=== PATIENT | male | born 1935 | race Caucasian/White ===

== ENCOUNTER 2016-12-09 03:06 | Inpatient (IN) ==
[2016-12-09] MEDS ORDERED: SODIUM CHLORIDE 0.9% 1,000 ML IV STA (03:42)
[2016-12-09] MEDS ORDERED: ENOXAPARIN 100 MG/ML SYRINGE SUBCUT STA (03:42)
[2016-12-09] MEDS ORDERED: ONDANSETRON 4 MG/2 ML VIAL IV STA (03:42)
[2016-12-09] MEDS ORDERED: CLOPIDOGREL 300 MG TABLET PO STA (03:42)
[2016-12-09] MEDS ORDERED: ASPIRIN CHEW 81 MG TABLET PO STA (03:42)
[2016-12-09] MEDS ORDERED: MORPHINE 2 MG/1 ML SYRINGE IV ONE (03:46)
--- NOTE | 2016-12-09 03:49 | EKG Report ---
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
[2016-12-09 03:54] LABS: Basophils % 0.3 % (0.0-0.8); Eosinophils # 0.1 10*3/uL (0.0-0.87); Eosinophils % 0.9 % (0.00-10.9); Hematocrit 45.9 VOL% (42.0-52.0); Hemoglobin 15.3 GM/DL (14.0-18.0); Immature Granulocytes % 0.8 %; Lymphocytes # 2.5 10*3/uL (1.4-4.0); Lymphocytes % 19.5 % (21.2-54.2); Mean Corpuscular HGB Conc 33.3 GM/DL (32-36); Mean Corpuscular Hemoglobin 32 PG (27-34); Mean Corpuscular Volume 94.6 FL (87-102); Mean Platelet Volume 11.8 FL (9.6-12.0); Monocytes # 1.5 10*3/uL (0.11-0.8); Monocytes % 11.5 % (1.7-12.7); Neutrophils # 8.5 10*3/uL (1.4-7.4); Platelet Count 209 T/CUMM (130-400); Red Blood Count 4.85 MC/CUMM (3.8-5.5); Red Cell Distribution Width 14.1 % (9.3-17.3); White Blood Count 12.7 T/CUMM (4-12)
[2016-12-09] MEDS ORDERED: ONDANSETRON 4 MG/2 ML VIAL ONE (03:56)
[2016-12-09] MEDS ORDERED: ASPIRIN 325 MG TABLET ONE (03:56)
[2016-12-09] MEDS ORDERED: MORPHINE 2 MG/1 ML SYRINGE ONE ×2 (03:56→04:13)
[2016-12-09] MEDS ORDERED: CLOPIDOGREL 300 MG TABLET ONE ×2 (03:56→05:08)
[2016-12-09] MEDS ORDERED: ENOXAPARIN 80 MG/0.8 ML SYRINGE SUBCUT ONE (03:56)
--- NOTE | 2016-12-09 03:56 | Emergency Department Note ---
I, Tamia Snider, am scribing for, and in the presence of, Samuel Rodríguez MD 03:48. IMarcos Robert M, MD, personally performed the services described in this documentation, ascribed by Tamia Snider in my presence, and it is both accurate and complete 354 . Arrival - Arrival Chief Complaint: Back Stated Complaint: nerve in back and side ,ask pt ED Nursing Triage Note: PATIENT STATES THAT HE RECIEVED AN INJECTION FOR MUSCLE PAIN LAST WEEK AND HAS BEEN HAVING BACK PAIN EVER SINCE. PATIENT HAS A HX OF BACK SURGERY AND CHRONIC BACK PAIN. STATE THAT PAIN WAS SO INTENSE THAT IT CAUSED HIM TO BREAK OUT IN A SWEAT. Mode of Arrival: Ambulatory Limitations: No Limitations Source: Patient Time Seen by Provider: 12/09/16 03:35 - History of Present Illness HPI Narrative: Pt is a 81 y/o male that came to the ED with c/o nerve/back pain that began about a week ago and worsened tonight. Pt reports he had back surgery and his sciatic nerve is causing his pain. He states he had an injection done 6 days ago with no relief. Pt reports he has not slept since the injection. After he was brought to the emergency department treatment room, he states he began having chest pain about 2 hours ago with diaphoresis, nausea, and faint feeling. He did not mention the symptoms at time of triage. He states he was going to wait and go to the pain clinic tomorrow but the pain got too much and when the chest pain came on he did not want to risk it. Dr. Dillard is the pt 's counseling specialist. He has had 5 stents placed in the past. No other complaints/ pain in ED at this time. Onset (ago): hour(s) Consistency: constant Severity: moderate, severe Severity scale (1-10): 8 Quality: sharp Allergies/Adverse Reactions: Allergies Allergy/AdvReac Type Severity Reaction Status Date / Time No Known Allergies Allergy Unverified 08/04/15 10:46 Home Medications: Home Medications Medication Instructions Recorded Confirmed Type Aspirin [Ecotrin] 81 mg PO BEDTIME 08/04/15 12/09/16 History Atorvastatin [Lipitor] 20 mg PO BEDTIME 08/04/15 12/09/16 History Insulin Aspart Prot/Asp 70/30 36 unit SUBCUT BEDTIME 08/04/15 12/09/16 History [NovoLOG Mix 70/30] Insulin Aspart Prot/Asp 70/30 50 unit SUBCUT DAILY W/BREAKFAST 08/04/15 History [NovoLOG Mix 70/30] Losartan [Cozaar] 50 mg PO BEDTIME 08/04/15 12/09/16 History Nitroglycerin [Nitroglycerin SL 0.4 mg SL Q5M PRN #100 tablet 08/04/15 12/09/16 Rx Tab] Pantoprazole Tab [Protonix Tab] 40 mg PO BEDTIME 10/24/16 12/09/16 History Atenolol [Tenormin] 25 mg PO BID #60 tablet 10/26/16 12/09/16 Rx Atorvastatin [Lipitor] 20 mg PO BEDTIME tablet 10/26/16 12/09/16 Rx Isosorbide Mononitrate [Imdur] 30 mg PO DAILY #30 tablet 10/26/16 12/09/16 Rx Review of System - Review of System 12 point system: reviewed and no additional remarkable complaints except as stated - Review of System Constitutional: Present: diaphoresis. Absent: fever Respiratory: Absent: cough Cardiovascular: Present: chest pain Gastrointestinal: Present: nausea. Absent: abdominal pain Musculoskeletal: Present: back pain (nerve pain in his back). Absent: arm pain Skin: Absent: rash Neurological: Absent: headache Psychiatric: Absent: anxiety Medical,Surgical,& Family Hx - Medical History Cardio: History of: Hypertension, [place] (x3) HEENT: History of: Eye Problem (cataract both eyes) Endocrine: History of: Diabetes Mellitus (IDDM) Rheumatology: History of;: Fibromyalgia Genitourinary: History of: Kidney Stones Gastrointestinal: History of: GERD Musculoskeletal: History of: Back/Neck Problems, Musculoskeletal Problems ( arthritis) Hematology: History of: Bleeding Problems (Elevated platlets R/T spleenectomy) - Surgical History Cardiac Surgeries: Sugical HX of: Cardiac Catheterization (stents x5) Abdominal Surgeries: Surgical HX of: Abdominal Surgery, Appendectomy, Cholecystectomy, Colonoscopy, EGD Orthopedic Surgeries: Surgical HX of;: Orthopedic Surgery (bl knee scope and repair) Comment Only: Spinal Surgery (spinal spurs removed) - Family History Family History: Reports;: Family Diabetes (mother), Family Heart Disease (mother ), Family Hypertension (mother), Family Stroke (mother) - Social History Smoking Status: Never smoker Frequency of Alcohol Use: None Type of Drug Use: None Exam Vital Signs: Vital Signs Temperature 97.4 F L 12/09/16 03:14 Pulse Rate 53 L 12/09/16 03:14 Respiratory Rate 20 12/09/16 03:14 Blood Pressure 180/80 12/09/16 03:14 O2 Sat by Pulse Oximetry 96 12/09/16 03:14 - General General appearance: alert, in no apparent distress - Head Head exam: Present: atraumatic, normocephalic - Eye Eye exam: Present: PERRL, EOMI - ENT ENT exam: Present: mucous membranes moist. Absent: mucous membranes dry - Neck Neck exam: Present: full ROM. Absent: tenderness - Chest Chest inspection: Present: symmetric chest wall rise. Absent: tenderness - Respiratory Respiratory exam: Present: normal lung sounds bilaterally. Absent: respiratory distress - Cardiovascular Cardiovascular exam: Present: regular rate, normal rhythm, normal heart sounds - Abdominal Exam Abdominal exam: Present: soft. Absent: tenderness - Extremities Exam Extremities exam: Present: full ROM. Absent: tenderness - Back Exam Back exam: Present: full ROM. Absent: tenderness - Neurological Exam Neurological exam: Present: alert, oriented X3, CN II-XII intact. Absent: motor sensory deficit - Psychiatric Psychiatric exam: Present: normal affect, normal mood - Skin Skin exam: Present: warm, dry Course - Consultations Consultation #1: Dr. Linwood Starkey was notified of STEMI and asked that we activate the Mud Grinder. Time: 03:45 Results - EKG EKG results: interpreted by ERMD (inferior STEMI. This is new from prior EKGs.) , sinus rhythm Disposition Clinical Impression: Acute ST elevation myocardial infarction (STEMI), Lumbar radiculopathy, History of coronary artery stent placement, Chest pain Case discussed with: patient, patient's family Disposition: Still a Patient Condition: Stable Time of Disposition: 03:56
[2016-12-09] MEDS ORDERED: NITROGLYCERIN DRIP 50 MG/250 ML BOTTLE IV ONE (03:57)
[2016-12-09] MEDS ORDERED: MORPHINE 2 MG/1 ML SYRINGE IV STA (03:59)
[2016-12-09 04:03] LABS: PT Patient Result 10.4 SECS
[2016-12-09] MEDS: NITROGLYCERIN DRIP 50 MG/250 ML BOTTLE IV SCH (04:08)
[2016-12-09] MEDS ORDERED: LIDOCAINE 1% 20 ML VIAL ONE (04:16)
[2016-12-09] MEDS ORDERED: HEPARIN/NACL 0.9% 2 UNITS/ML 1,000 ML IV ONE (04:16)
[2016-12-09] MEDS ORDERED: LIDOCAINE 1%/EPI INJ 20 ML VIAL ONE (04:16)
[2016-12-09] MEDS ORDERED: MIDAZOLAM 2 MG/2 ML VIAL ONE (04:17)
[2016-12-09] MEDS ORDERED: fentaNYL 100 MCG/2 ML VIAL ONE (04:17)
[2016-12-09 04:18] LABS: Albumin 3.5 G/DL (3.4-5.0); Bilirubin,Total 0.5 MG/DL (0.2-1.0); Calcium 8.9 MG/DL (8.5-10.1); Magnesium 2.1 MG/DL (1.8-2.4); Osmolality,Calculated 283.5 MOS/KG (273-304); Potassium 4.2 MMOL/L (3.5-5.1); Total Protein 6.9 G/DL (6.4-8.3)
[2016-12-09] MEDS ORDERED: HEPARIN/NACL 0.9% 2 UNITS/ML 500 ML IV ONE (04:21)
[2016-12-09] MEDS ORDERED: methylPREDNISolone SOD SUC 125 MG/2 ML VIAL ONE (04:24)
[2016-12-09 04:26] LABS: Troponin I Only 0.087 NG/ML (0.00-0.045)
[2016-12-09] MEDS ORDERED: EPTIFIBATIDE 20,000 MCG/10 ML VIAL ONE (04:44)
[2016-12-09] MEDS ORDERED: EPTIFIBATIDE 75 MG/100 ML BOTTLE IV ONE (04:44)
[2016-12-09] MEDS ORDERED: EPTIFIBATIDE 75 MG/100 ML BOTTLE IV SCH (04:49)
--- NOTE | 2016-12-09 05:30 | Cardiac Catheterization ---
Date of Procedure:: 12/09/16 Pre-op Diagnosis: Acute inferolateral myocardial infarction with ST elevation Post-op diagnosis: same Procedure: Clinical summary: 81-year-old man with history of prior stents placed to the LAD and diagonal as well as to the distal right at the origin of the posterolateral branch now with ST elevation inferiorly for emergent evaluation. Description of procedure: Procedure performed: Left heart catheterization Coronary angiography Emergent percutaneous intervention of the midportion of the posterolateral branch with a 2.5 x 15 mm science drug-eluting stent Percutaneous intervention of the proximal posterolateral margin with a 3.0 x 15 mm science Alpine drug-eluting stent Left ventriculography Angio-Seal closure right from arteriotomy site Patient was brought to the [facility] emergently where the right groin was prepped and draped in the usual sterile manner. Using intravenous sedation and local anesthesia a needle was inserted right femoral artery without difficulty and a 6 Yi sheath was positioned without difficulty. A [place] left diagnostic catheter was advanced over guidewire to fluoroscopic control the ascending aorta where angiography left coronary artery was undertaken in multiple views. After adequate angiograms of the left coronary were obtained this catheter was withdrawn and a [place] right guide was advanced over a guidewire under fluoroscopic control to the ascending aorta where it was positioned at the ostium of the right coronary artery. A BMW 014 wire was advanced to the distal posterolateral branch and some baptism of flow was noted at that point. Next a 2.5 x 15 mm apex balloon was advanced to the proximal posterolateral inflated one-time to 8 atmospheres. It was then advanced to the midportion of the posterolateral and inflated at a mid posterolateral stenosis to 10 toshia for 26 seconds. At this point this balloon was removed from the guidewire and a 2.5 x 15 mm science Alpine balloon was advanced to the area in the mid posterolateral and deployed to a maximum 6 toshia for 6 seconds. There was good apposition of the stent to the vessel wall. At this point the delivery balloon was pulled back into the guide and removed. Next a 3.0 x 15 mm science Alpine stent was advanced to the ostium of the posterolateral and deployed to a maximum of 14 toshia for 20 seconds. There appeared to be JENIFER grade 3 flow down the vessel. No good evidence of significant dissection or compromise flow can be identified. At this point the delivery balloon was pulled back into the guide. The guidewire was then pulled back into the guide. Repeat angiogram confirmed a good result. At this point the balloon and wire were removed from the guide. The guide was then removed from the sheath and a pigtail ventriculographic catheter was advanced over a guidewire under fluoroscopic control to the ascending aorta and across the aortic valve where ventriculograms obtained in the PARKINSON projection. After completion of ventriculography the pigtail catheter was removed moved and pullback from the ventricle to the aorta under hemodynamic monitoring. It was removed from the sheath. The patient then underwent right femoral sheath angiography which demonstrated anatomy appropriate for Angio-Seal closure. This was accomplished without difficulty. Good hemostasis was obtained. The patient then was transferred to the CCU having suffered no significant immediate complications. Stable vital signs are noted end procedure. Hemodynamics: Please see coming data sheet Coronary arteriography: Left coronary artery: The left main coronary artery is well-developed and free of significant obstructing lesions. The left anterior descending coronary artery is large vessel extends around the apex of the ventricle possesses no significant lesions throughout its course. The branches of the LAD are likewise free of significant obstructing lesions. There is noted to be a smooth 70% stenosis noted in the midportion of the LAD near the apex. The remainder of the LAD and its branches appeared to be free of significant obstructing lesions. Circumflex coronary is a small nondominant vessel with possesses no significant lesions to its course. Right coronary artery: The right coronary artery is a large dominant vessel that possesses no significant lesions throughout its course. At the bifurcation of the posterior descending coronary artery there is a occlusion noted of the posterolateral branch of the right coronary. The remainder the right coronary appears to be free of significant obstructing lesions. Percutaneous intervention: After the above described procedure the posterolateral branch was opened using a guidewire and after ballooning the proximal occluded segment a tight mid posterolateral branch occlusion was noted. This was treated as outlined above with a 2.5 x 15 mm Paracosm balloon. After the above described procedures involving the mid posterolateral and the ostium of the posterolateral there was JENIFER grade 3 flow without significant compromised perfusion noted. Left ventriculography: After injection of contrast left ventricle from the PARKINSON projection there appears to be basal hypokinesis with overall ejection fraction estimated to be in the 55-60% range. Mitral and aortic structures appear normal by ventriculography. Right femoral sheath angiography: After injection of contrast right femoral arterial sheath it appears to enter the common femoral above the bifurcation. No significant disease of the distal iliac, common femoral or bifurcation be noted based on this limited angiographic study. Conclusions: Successful percutaneous intervention of a total occlusion of the posterolateral branch with stenting of the mid vessel as well as ostium with a good angiographic result Normal left ventricular size and function Angio-Seal closure right from arteriotomy site Discussion and recommendations: Patient presents with acute inferolateral myocardial infarction. He is been treated successfully percutaneous intervention as outlined above. It watched closely for evidence of bleeding recurring ischemia. Our findings of been reviewed with the patient and with his family. Anesthesia: moderate conscious sedation Surgeon / Physician: Seth Starkey Corporate Services Manager: none Estimated blood loss: minimal Specimens: none sent Condition: stable - Discharge Disposition: Still a Patient - Medications / Follow-up
[2016-12-09] MEDS ORDERED: NITROGLYCERIN SL 0.4 MG TABLET SL PRN (05:31)
[2016-12-09] MEDS ORDERED: ACETAMINOPHEN 325 MG TABLET PO PRN (05:33)
[2016-12-09] MEDS ORDERED: SODIUM CHLORIDE 0.9% 1,000 ML IV SCH (06:00)
--- NOTE | 2016-12-09 06:04 | XRay Report ---
Exam: XR chest 1V portable Date: 12/09/2016 3:43 AM Indication: Shortness of breath Comparison: 10/24/2016 Technical: AP portable Findings: Mild borderline cardiac enlargement is present. Scarring is present adjacent to the first rib on the left. Lateral marginal osteophytes are present. ASVD is noted. External cardiac leads are present. No obvious infiltrate or effusion otherwise noted Impression: 1. Borderline cardiac enlargement with ASVD without decompensation 2. Degenerative spondylosis 3. Scarring adjacent to the left first rib 4. No acute cardiopulmonary pathology PROCEDURE INTERPRETED AT [facility] DEPARTMENT OF RADIOLOGY Final Report Signed by: Dr. Will Conroy
--- NOTE | 2016-12-09 07:39 | EKG Report ---
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
[2016-12-09] MEDS ORDERED: HYDROmorphone 2 MG/1 ML VIAL IM PRN (08:28)
[2016-12-09 08:37] LABS: CKMB % 11.7 %
[2016-12-09 08:41] LABS: Troponin I Only 33.9 NG/ML (0.00-0.045)
[2016-12-09] MEDS: INSULIN ASPART PROTAMINE/ASPART 70/30 100 UNIT/ML SUBCUT SCH ×2 (08:43→20:25)
[2016-12-09] MEDS: ATENOLOL 25 MG TABLET PO SCH ×2 (08:45→20:25)
[2016-12-09] MEDS: ISOSORBIDE MONONITRATE 30 MG TABLET PO SCH (08:45)
[2016-12-09] MEDS: INSULIN REGULAR 100 UNIT/ML SUBCUT SCH ×4 (08:50→20:29)
--- NOTE | 2016-12-09 09:02 | Cardiology History & Physical ---
Assessment and Plan (1) Acute ST elevation myocardial infarction (STEMI) Status: Acute Assessment and plan: Patient is now post PCI with a angiographically (vessel and good JENIFER grade 3 flow down the vessel. He is comfortable without evidence of heart failure. His rhythm has been stable and his EKG is much improved. His second troponin was 33 and we are continuing to monitor him closely. Our findings have been reviewed with the patient and with his family. Current Visit: Yes (2) History of coronary artery stent placement Problem details: Stents to: first diagonal branch, distal RCA 2, second diagonal branch, proximal LAD. Status: Chronic Current Visit: Yes (3) Coronary artery disease Status: Chronic Current Visit: No (4) Diabetes mellitus Status: Chronic Current Visit: No History of Present Illness Chief complaint: ST elevation myocardial infarction History of present illness: Mr. Silva is a 81 year old male who sees Dr. Dillard is his primary angio technologist. He has a history of an anterior myocardial infarction in 2003. He was treated with intracoronary stent placement. He had reevaluation in 2007 and his stents were open without evidence of significant disease. In 2011 he had stenting of a diagonal branch as well as of the posterolateral branch of the right coronary artery. He has done well since that time and now presents with an acute inferior myocardial infarction with ST elevation in the inferolateral leads. He was taken emergently to the [facility] and had PCI of an occluded stented segment of the posterolateral branch as well as stenting of a more distal lesion of the same vessel. He is stable post PCI. He has a history of fibromyalgia. He has a history of diabetes and hyperlipidemia. He has remote history of tobacco use and a history of asthma. He has severe right hip pain which I think is related to some issues with his hip joint. He takes chronic pain medications for fibromyalgia. He is admitted now post PCI for a ST elevation inferior myocardial infarction Home Medications Medication Instructions Recorded Confirmed Type Aspirin [Ecotrin] 81 mg PO BEDTIME 08/04/15 12/09/16 History Atorvastatin [Lipitor] 20 mg PO BEDTIME 08/04/15 12/09/16 History Insulin Aspart Prot/Asp 70/30 36 unit SUBCUT BEDTIME 08/04/15 12/09/16 History [NovoLOG Mix 70/30] Insulin Aspart Prot/Asp 70/30 50 unit SUBCUT DAILY W/BREAKFAST 08/04/15 History [NovoLOG Mix 70/30] Losartan [Cozaar] 50 mg PO BEDTIME 08/04/15 12/09/16 History Nitroglycerin [Nitroglycerin SL 0.4 mg SL Q5M PRN #100 tablet 08/04/15 12/09/16 Rx Tab] Pantoprazole Tab [Protonix Tab] 40 mg PO BEDTIME 10/24/16 12/09/16 History Atenolol [Tenormin] 25 mg PO BID #60 tablet 10/26/16 12/09/16 Rx Atorvastatin [Lipitor] 20 mg PO BEDTIME tablet 10/26/16 12/09/16 Rx Isosorbide Mononitrate [Imdur] 30 mg PO DAILY #30 tablet 10/26/16 12/09/16 Rx HYDROcodone/ACETAMIN 7.5-325 1 tablet PO Q6H PRN 12/09/16 12/09/16 History [[place] 7.5-325] Allergies Allergy/AdvReac Type Severity Reaction Status Date / Time No Known Allergies Allergy Unverified 08/04/15 10:46 Medical,Surgical,& Family Hx - Medical History Cardio: History of: Hypertension, [place] (x3) HEENT: History of: Eye Problem (cataract both eyes) Endocrine: History of: Diabetes Mellitus (IDDM) Rheumatology: History of;: Fibromyalgia, Rheumatoid Arthritis Genitourinary: History of: Kidney Stones Gastrointestinal: No history of: GERD Musculoskeletal: History of: Back/Neck Problems, Musculoskeletal Problems ( arthritis) Hematology: History of: Bleeding Problems (Elevated platlets R/T spleenectomy) - Surgical History Cardiac Surgeries: Sugical HX of: Cardiac Catheterization (stents x5) Abdominal Surgeries: Surgical HX of: Abdominal Surgery, Appendectomy, Cholecystectomy, Colonoscopy, EGD Orthopedic Surgeries: Surgical HX of;: Orthopedic Surgery (bl knee scope and repair), Spinal Surgery (spinal spurs removed) - Family History Family History: Reports;: Family Diabetes (mother), Family Heart Disease (mother ), Family Hypertension (mother), Family Stroke (mother) Denies;: Family Anesthesia Reaction, Family Cancer, Family Hematology, Family Psychiatric Problems - Social History Smoking Status: Never smoker Frequency of Alcohol Use: None Type of Drug Use: None Cardiology Physical Exam - Constitutional Vitals: Vital Signs Temp Pulse Resp BP Pulse Ox 97.8 F 82 15 161/77 94 L 12/09/16 05:33 12/09/16 06:55 12/09/16 06:55 12/09/16 06:55 12/09/16 06:55 Intake and Output 12/08/16 12/09/16 12/09/16 23:59 07:59 15:59 Other: # Voids 0 # Bowel Movements 0 Weight 97.069 kg Patient Weight 12/09/16 23:59 Weight 97.069 kg Exam: Physical examination: General: The patient is awake and alert and oriented 3. Mood and affect are normal. HEENT: Normocephalic, sclera are clear there are no lid xanthelasmas noted. Oral mucosa is free of cyanosis or pallor. Neck: The neck is supple without JVD. Carotid upstrokes are normal volume and amplitude. There is no audible bruit. There is no palpable thyroid. Trachea is midline. Chest: Lungs: The patient is comfortable at rest without intercostal retractions or abdominal breathing. There are no adventitial sounds rales rubs rhonchi or wheezes noted. Cardiovascular: The PMI is nondisplaced. No palpable thrill S3 or S4. There is a regular rate and rhythm with no murmur rub or gallop noted. Dorsalis pedis posterior tibial and femoral pulses are 2+ and equal bilaterally. Abdomen: Abdomen is soft and nontender with normal active bowel sounds. There is no palpable mass or organomegaly noted. There is no midline bruit. Extremities exam: There is no cyanosis clubbing or edema. Skin: Skin is warm and dry without ecchymosis or urticaria or skin rash. There are no palpable nodules. Musculoskeletal: There is no kyphosis or scoliosis noted. Result/EKG - Labs CBC & BMP: 12/09/16 03:46 12/09/16 03:46 Labs: Laboratory Results - last 24 hr 12/09/16 12/09/16 07:11 07:54 POC Glucose 211 H Total Creatine Kinase 912 H CK-MB (CK-2) 106.4 H CK and CKMB Interp 11.7 Troponin I 33.900 H D - EKG EKG results: interpreted by me (EKG shows an old anterior myocardial infarction with nonspecific ST-T change currently. EKG series shows inferolateral myocardial infarction with ST elevations to baseline currently.) Quality Measures - VTE Contraindication to Pharmacological VTE Prophylaxis: High Risk of Bleeding
[2016-12-09] MEDS: LOSARTAN 50 MG TABLET PO SCH (09:18)
[2016-12-09] MEDS: HYDROmorphone 2 MG/1 ML VIAL IV PRN ×2 (11:51→22:16)
[2016-12-09] MEDS: PANTOPRAZOLE 40 MG TABLET PO SCH (20:25)
[2016-12-09] MEDS: ASPIRIN EC 81 MG TABLET PO SCH (20:25)
[2016-12-09] MEDS: ATORVASTATIN 20 MG TABLET PO SCH (20:25)
[2016-12-09] MEDS ORDERED: LOSARTAN 50 MG TABLET PO SCH (21:00)
[2016-12-09] MEDS ORDERED: ATORVASTATIN 20 MG TABLET PO SCH (21:00)
[2016-12-10] MEDS: HYDROmorphone 2 MG/1 ML VIAL IV PRN (03:11)
[2016-12-10] MEDS: NITROGLYCERIN DRIP 50 MG/250 ML BOTTLE IV SCH (04:11)
[2016-12-10 04:59] LABS: Basophils # 0.1 10*3/uL (0.0-0.2); Basophils % 0.4 % (0.0-0.8); Eosinophils % 0.3 % (0.00-10.9); Hematocrit 42.5 VOL% (42.0-52.0); Hemoglobin 14.2 GM/DL (14.0-18.0); Immature Granulocytes % 0.8 %; Lymphocytes # 2.5 10*3/uL (1.4-4.0); Lymphocytes % 20.9 % (21.2-54.2); Mean Corpuscular HGB Conc 33.4 GM/DL (32-36); Mean Corpuscular Hemoglobin 32 PG (27-34); Mean Corpuscular Volume 94.9 FL (87-102); Mean Platelet Volume 12.1 FL (9.6-12.0); Monocytes # 2.1 10*3/uL (0.11-0.8); Monocytes % 17.1 % (1.7-12.7); Neutrophils # 7.3 10*3/uL (1.4-7.4); Neutrophils % 60.5 % (38.7-73.9); Platelet Count 184 T/CUMM (130-400); Red Blood Count 4.48 MC/CUMM (3.8-5.5); Red Cell Distribution Width 14.3 % (9.3-17.3); White Blood Count 12.1 T/CUMM (4-12)
[2016-12-10 05:34] LABS: Lymphocytes 30 % (20-55); Segmented Neutrophils 61 % (50-85)
[2016-12-10 05:35] LABS: Elliptocytes Few; Platelet Estimate Normal; Total Cells Counted 100
[2016-12-10 06:19] LABS: Calcium 8.3 MG/DL (8.5-10.1); Osmolality,Calculated 289.7 MOS/KG (273-304); Potassium 4.4 MMOL/L (3.5-5.1); Risk Ratio 2.08; VLDL CHOLESTEROL 12.2 MG/DL
[2016-12-10] MEDS: INSULIN REGULAR 100 UNIT/ML SUBCUT SCH ×4 (08:31→21:37)
--- NOTE | 2016-12-10 08:31 | Cardiology Progress Note ---
Isidoro Cobb Vanessa, RN, am scribing for, and in the presence of, Seth Starkey MD 08:31. Assessment and Plan - Time spent with patient Time spent with patient: Less than 30 minutes (1) Acute ST elevation myocardial infarction (STEMI) Status: Acute Assessment and plan: Continues to do well post PCI of PLV with drug eluting stent x 2. No clinical findings for heart failure. Last troponin check yesterday afternoon and was 48.2. 12/10/16: Clinically stable post PCI. He is doing well and we will transfer him to the floor and likely discharge in the morning. I have discussed in detail the particulars of this case and I have examined the patient and reviewed the patient's chart both current and old. I was directly involved in this patient's evaluation and management I completely agree with Kandy Chaudhry regarding this patient's evaluation and treatment plan Current Visit: Yes (2) History of coronary artery stent placement Problem details: Stents to: first diagonal branch, distal RCA 2, second diagonal branch, proximal LAD. Status: Chronic Assessment and plan: Previously placed stents patent. Current Visit: Yes (3) Coronary artery disease Status: Chronic Current Visit: No (4) Diabetes mellitus Status: Chronic Current Visit: No (5) Hypertension Status: Chronic Current Visit: No Cardiology - PN: Subj Interval history: Under close observation in ICU this morning. Awake and alert with no acute distress noted. Denies CP, SOB, palpitation, presyncope. Only complaint this morning is of right hip discomfort and he contributes this to chronic pain for which he is followed by pain management. RFA cath site without bruise or hematoma. Dorsalis pedis and posterior tibial pulses 2+ and palpable bilaterally. Slightly bradycardic overnight with HR in 50's, regular. No overt ectopy or dysrhythmia per tele monitoring. Labs reviewed. H/H stable 14.2 & 42.5 , platelets slightly decreased but within normal range at 184,000 (209,000 yesterday), electrolytes within normal limits and creatinine is 0.9. Exam (Progress Note) - Constitutional Vitals: Period Temp Pulse Resp BP Sys/Ferreira Pulse Ox Last 24 Hr 97.8 F-99.6 F 49-82 11-21 104-163/51-90 92-97 Exam: General: The patient is awake and alert and oriented 3. Mood and affect are normal. HEENT: Normocephalic, sclera are clear there are no lid xanthelasmas noted. Oral mucosa is free of cyanosis or pallor. Neck: The neck is supple without JVD. Carotid upstrokes are normal volume and amplitude. There is no audible bruit. There is no palpable thyroid. Trachea is midline. Chest: Lungs: The patient is comfortable at rest without intercostal retractions or abdominal breathing. There are no adventitial sounds rales rubs rhonchi or wheezes noted. Cardiovascular: The PMI is nondisplaced. No palpable thrill S3 or S4. There is a regular rate and rhythm with no murmur rub or gallop noted. Dorsalis pedis posterior tibial and femoral pulses are 2+ and equal bilaterally. Abdomen: Abdomen is soft and nontender with normal active bowel sounds. There is no palpable mass or organomegaly noted. There is no midline bruit. Extremities exam: There is no cyanosis clubbing or edema. Skin: Skin is warm and dry without ecchymosis or urticaria or skin rash. There are no palpable nodules. Musculoskeletal: There is no kyphosis or scoliosis noted. Result/EKG - Labs CBC & BMP: 12/10/16 04:08 12/10/16 04:08 Lab Results: I have reviewed the past 24 hour labs Labs: Laboratory Results - last 24 hr 12/09/16 12/09/16 12/09/16 07:11 12:06 14:01 WBC RBC Hgb Hct MCV MCH MCHC RDW Plt Count MPV Neut % (Auto) Lymph % (Auto) Jack % (Auto) Eos % (Auto) Baso % (Auto) Neut # (Auto) Lymph # (Auto) Jack # (Auto) Eos # (Auto) Baso # (Auto) Total Counted Immature Gran % Nucleated RBC % Immature Gran # Segmented Neutrophils Lymphocytes Monocytes Nucleated RBCs # Platelet Estimate Elliptocytes Sodium Potassium Chloride Carbon Dioxide Anion Gap BUN Creatinine GFR Calculation BUN/Creatinine Ratio Glucose POC Glucose 198 H Calculated Osmolality Calcium Total Creatine Kinase 912 H CK-MB (CK-2) 106.4 H CK and CKMB Interp 11.7 Troponin I 33.900 H D 48.200 H D Triglycerides Cholesterol LDL Cholesterol VLDL Cholesterol HDL Cholesterol Heart Disease Risk Ratio 12/09/16 12/09/16 12/10/16 16:17 19:51 04:08 WBC 12.1 H RBC 4.48 Hgb 14.2 Hct 42.5 MCV 94.9 MCH 32 MCHC 33.4 RDW 14.3 Plt Count 184 MPV 12.1 H Neut % (Auto) 60.5 Lymph % (Auto) 20.9 L Jack % (Auto) 17.1 H Eos % (Auto) 0.3 Baso % (Auto) 0.4 Neut # (Auto) 7.3 Lymph # (Auto) 2.5 Jack # (Auto) 2.1 H Eos # (Auto) 0.0 Baso # (Auto) 0.1 Total Counted 100 Immature Gran % 0.8 Nucleated RBC % 0.0 Immature Gran # 0.10 Segmented Neutrophils 61 Lymphocytes 30 Monocytes 9 Nucleated RBCs # 0.00 Platelet Estimate Normal Elliptocytes Few Sodium Potassium Chloride Carbon Dioxide Anion Gap BUN Creatinine GFR Calculation BUN/Creatinine Ratio Glucose POC Glucose 143 H 227 H Calculated Osmolality Calcium Total Creatine Kinase CK-MB (CK-2) CK and CKMB Interp Troponin I Triglycerides Cholesterol LDL Cholesterol VLDL Cholesterol HDL Cholesterol Heart Disease Risk Ratio 12/10/16 04:08 WBC RBC Hgb Hct MCV MCH MCHC RDW Plt Count MPV Neut % (Auto) Lymph % (Auto) Jack % (Auto) Eos % (Auto) Baso % (Auto) Neut # (Auto) Lymph # (Auto) Jack # (Auto) Eos # (Auto) Baso # (Auto) Total Counted Immature Gran % Nucleated RBC % Immature Gran # Segmented Neutrophils Lymphocytes Monocytes Nucleated RBCs # Platelet Estimate Elliptocytes Sodium 145 Potassium 4.4 Chloride 107 Carbon Dioxide 26 Anion Gap 16.4 H BUN 21 H Creatinine 0.90 GFR Calculation 97 BUN/Creatinine Ratio 23.00 H Glucose 76 POC Glucose Calculated Osmolality 289.7 Calcium 8.3 L Total Creatine Kinase CK-MB (CK-2) CK and CKMB Interp Troponin I Triglycerides 61 Cholesterol 104 LDL Cholesterol 55.0 VLDL Cholesterol 12.2 HDL Cholesterol 50 Heart Disease Risk Ratio 2.08 - EKG EKG results: interpreted by me EKG shows: bradycardia (sinus bradycardia) Quality Measures - VTE Contraindication to Pharmacological VTE Prophylaxis: High Risk of Bleeding Specialty Discharge - Follow Up or Referrals Lalito Cobb Wesley, MD, personally performed the services described in this documentation, ascribed by Kandy Chaudhry RN in my presence, and it is both accurate and complete 831 .
[2016-12-10] MEDS: CLOPIDOGREL 75 MG TABLET PO SCH (08:34)
[2016-12-10] MEDS: ATENOLOL 25 MG TABLET PO SCH ×2 (08:34→21:37)
[2016-12-10] MEDS: ISOSORBIDE MONONITRATE 30 MG TABLET PO SCH (08:34)
[2016-12-10] MEDS: LOSARTAN 50 MG TABLET PO SCH (08:34)
[2016-12-10] MEDS: INSULIN ASPART PROTAMINE/ASPART 70/30 100 UNIT/ML SUBCUT SCH ×2 (08:35→21:37)
[2016-12-10] MEDS: oxyCODONE/ACETAMINOPHEN 5-325 MG TABLET PO PRN ×3 (09:05→21:43)
--- NOTE | 2016-12-10 09:07 | EKG Report ---
Stationary ECG Study [facility] Test Date: 12/10/2016 7:49:38 AM Pat Name: ALYSON TRIANA Department: Room: 112 Gender: M Lawyers: SHANELLE : 1935 Requested by: Seth Starkey Order Number: [id number] Reading MD: SETH STARKEY Intervals [place] Rate: 53 P: 60 NE: 157 QRS: -61 QRSD: 140 T: 29 QT: 447 QTc: 429 Interpretive Statements SINUS BRADYCARDIA MARKED LEFT AXIS DEVIATION RIGHT BUNDLE BRANCH BLOCK ANTEROLATERAL MYOCARDIAL INFARCTION, OF INDETERMINATE AGE Electronically Signed On 12-10-16 16:11:25 CHIEF BUSINESS OFFICER by SETH STARKEY [email or web address]
--- NOTE | 2016-12-10 16:11 | Discharge Summary ---
<Bri Blackwell E - Last Filed: 12/10/16 16:14> Hospital Course - Hospital Course Hospital Course: discharge medications need to be addressed prior to closing this discharge summary Mr. 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 He has a history of an anterior myocardial infarction in 2003. He was treated with intracoronary stent placement. He had reevaluation in 2007 and his stents were open without evidence of significant disease. In 2011 he had stenting of a diagonal branch as well as of the posterolateral branch of the right coronary artery. He had done well since that time until he presented to the ER of [facility] December 08, 2016 with an acute inferior myocardial infarction with ST elevation in the inferolateral leads. He was taken emergently to the [facility] by Dr. Starkey where he had PCI of an occluded stented segment of the posterolateral branch as well as stenting of a more distal lesion of the same vessel. He did well without complication and was returned to ICU in stable condition. He was then transition to our telemetry unit overnight he has done well. Overnight, his labs are stable and his right groin soft and free of hematoma or bruit. He is anxious for release home. Having felt he met maximal medical therapy, he is being discharged home in stable condition. He is being given a follow-up appointment with Dr. Georges in one to 2 weeks. At that visit she'll have the following labs: BMP, magnesium and CBC. EKG will also be obtained. Discharge medications include the following: Aspirin 81 mg orally daily Plavix 75 mg orally daily Atenolol 25 mg orally twice a day Cozaar 50 Milgram's orally daily Atorvastatin 20 mg orally each evening He will resume his home insulin routine - Time spent with patient Time with patient DS: Greater than 30 minutes Diagnosis - Discharge Diagnosis (1) Dyslipidemia Status: Chronic (2) Diabetes Status: Chronic (3) Acute ST elevation myocardial infarction (STEMI) Status: Resolved (4) Chest pain Status: Resolved (5) Coronary artery disease Status: Chronic (6) Diabetes mellitus Status: Chronic (7) Hypertension Status: Chronic Specialty Discharge - Follow Up or Referrals Follow up with: Rob Georges MD [Physician] - (1-2 weeks. Labs: BMp, Mg, CBC. EKG) Discharge Plan - Discharge Data Disposition: Disch To Home/Self Care Discharge Diet: heart healthy Activity: other (post-cath expectations) Hygiene: other (post-cath expectations) Weight Bearing at Discharge: other (post-cath expectations) Driving: other (post-cath expectations) Contact your physician if you experience:: fever over 101, Difficulty voiding, Redness or swelling, Nausea/Vomiting, Shortness of breath, Bleeding, pain uncontrolled by pain medications - Discharge Medications No Action Atorvastatin [Lipitor] 20 mg PO BEDTIME Aspirin [Ecotrin] 81 mg PO BEDTIME Insulin Aspart Prot/Asp 70/30 [NovoLOG Mix 70/30] 50 unit SUBCUT DAILY W/ BREAKFAST Insulin Aspart Prot/Asp 70/30 [NovoLOG Mix 70/30] 36 unit SUBCUT BEDTIME Losartan [Cozaar] 50 mg PO BEDTIME Nitroglycerin [Nitroglycerin SL Tab] 0.4 mg SL Q5M PRN #100 tablet PRN Reason: Chest Pain Pantoprazole Tab [Protonix Tab] 40 mg PO BEDTIME Atorvastatin [Lipitor] 20 mg PO BEDTIME tablet HYDROcodone/ACETAMIN 7.5-325 [[place] 7.5-325] 1 tablet PO Q6H PRN PRN Reason: Pain Moderate To Severe (4-10) Atenolol [Tenormin] 25 mg PO BID #60 tablet Isosorbide Mononitrate [Imdur] 30 mg PO DAILY #30 tablet - Follow Up or Referral Follow Up: Rob Georges MD [Physician] - (1-2 weeks. Labs: BMp, Mg, CBC. EKG) - Forms/Instructions Instructions: Myocardial Infarction (GEN), Coronary Artery Disease (GEN), Heart Healthy Diet (GEN), Coronary Intravascular Stent Placement (DC) Exam - Constitutional Vitals: Period Temp Pulse Resp BP Sys/Ferreira Pulse Ox Last 24 Hr 96.1 F-97.9 F 16-64 16-20 99-146/44-81 90-97 Exam: General: Appears well with no apparent distress. Pleasant and cooperative. Appears comfortable. HEENT: PERRL, normocephalic, atraumatic. Mucous membranes moist. No jaundice noted. Conjunctiva moist and clear, sclerae anicteric Neck: No JVD/HJR, no thyromegaly or lymphadenopathy noted. Cardiac: Regular rate and rhythm. No murmur rub or gallop. Lungs: Clear to auscultation without accessory muscle use to assist the respiratory pattern. Not requiring oxygen. Abdomen: Soft, bowel sounds normoactive. Nontender and nondistended. No abdominal bruit or thrill noted. No masses noted. Musculoskeletal: No fluid collection. Decreased range of motion is noted. Extremities: Right groin soft and free of hematoma or bruit No clubbing, cyanosis noted. No edema noted. Upper extremity pulses 2+. Lower extremity pulses 2+. Capillary refill less than 3 seconds. Skin: No unusual lesions or rashes. No skin breakdown appreciated. Neuro: Awake, alert and oriented 3. Moves all extremities well without hemiparesis or paralysis. No essential tremor is appreciated. Discharge Results Labs on day of discharge: Labs from last 24 hours 12/11/16 12/11/16 12/11/16 08:16 06:33 06:33 WBC 10.1 RBC 4.56 Hgb 14.3 Hct 43.9 MCV 96.3 MCH 31 MCHC 32.6 RDW 14.4 Plt Count 170 MPV 11.6 Neut % (Auto) 57.8 Lymph % (Auto) 27.0 [place] % (Auto) 11.9 Eos % (Auto) 1.9 Baso % (Auto) 0.6 Neut # (Auto) 5.9 Lymph # (Auto) 2.7 [place] # (Auto) 1.2 H Eos # (Auto) 0.2 Baso # (Auto) 0.1 Immature Gran % 0.8 Nucleated RBC % 0.0 Immature Gran # 0.08 Nucleated RBCs # 0.00 Sodium 143 Potassium 4.8 Chloride 105 Carbon Dioxide 28 Anion Gap 14.8 BUN 24 H Creatinine 1.00 GFR Calculation 85 BUN/Creatinine Ratio 24.00 H Glucose 153 H POC Glucose 170 H Calculated Osmolality 291.0 Calcium 8.5 Magnesium 2.0 12/10/16 12/10/16 12/10/16 19:41 15:17 11:30 WBC RBC Hgb Hct MCV MCH MCHC RDW Plt Count MPV Neut % (Auto) Lymph % (Auto) [place] % (Auto) Eos % (Auto) Baso % (Auto) Neut # (Auto) Lymph # (Auto) [place] # (Auto) Eos # (Auto) Baso # (Auto) Immature Gran % Nucleated RBC % Immature Gran # Nucleated RBCs # Sodium Potassium Chloride Carbon Dioxide Anion Gap BUN Creatinine GFR Calculation BUN/Creatinine Ratio Glucose POC Glucose 170 H 92 95 Calculated Osmolality Calcium Magnesium 12/10/16 07:54 WBC RBC Hgb Hct MCV MCH MCHC RDW Plt Count MPV Neut % (Auto) Lymph % (Auto) [place] % (Auto) Eos % (Auto) Baso % (Auto) Neut # (Auto) Lymph # (Auto) [place] # (Auto) Eos # (Auto) Baso # (Auto) Immature Gran % Nucleated RBC % Immature Gran # Nucleated RBCs # Sodium Potassium Chloride Carbon Dioxide Anion Gap BUN Creatinine GFR Calculation BUN/Creatinine Ratio Glucose POC Glucose 81 Calculated Osmolality Calcium Magnesium - Imaging and Cardiology Cardiology Procedure: report reviewed by me Procedure: Chest x-ray: report reviewed by me DS: Provider Date of admission: 12/09/16 05:33 Primary care physician: Will Rich, Attending physician on admission: Seth Starkey MD Consults: 12/09/16 06:14 Consult to Pastoral Services [CONS] Routine Comment: Pastoral Screen: Request Event Organizer Visit Pastoral Screen Source of Request: Patient Discharging clinician: Bri Blackwell NP <Seth Starkey - Last Filed: 12/11/16 08:46> Hospital Course - Hospital Course Hospital Course: We will need to pay attention to his platelet count as 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 I have discussed in detail the particulars of this case and I have examined the patient and reviewed the patient's chart both current and old. I was directly involved in the patient's evaluation and management and I completely agree with Bri Blackwell NP regarding this patient's evaluation and treatment plan. Diagnosis - Discharge Diagnosis (1) Acute ST elevation myocardial infarction (STEMI) Status: Resolved (2) History of coronary artery stent placement Status: Chronic (3) Coronary artery disease Status: Chronic (4) Diabetes mellitus Status: Chronic (5) Hypertension Status: Chronic
[2016-12-10] MEDS: PANTOPRAZOLE 40 MG TABLET PO SCH (21:37)
[2016-12-10] MEDS: ASPIRIN EC 81 MG TABLET PO SCH (21:37)
[2016-12-10] MEDS: ATORVASTATIN 20 MG TABLET PO SCH (21:37)
[2016-12-11 06:54] LABS: Basophils # 0.1 10*3/uL (0.0-0.2); Basophils % 0.6 % (0.0-0.8); Eosinophils # 0.2 10*3/uL (0.0-0.87); Eosinophils % 1.9 % (0.00-10.9); Hematocrit 43.9 VOL% (42.0-52.0); Hemoglobin 14.3 GM/DL (14.0-18.0); Immature Granulocytes % 0.8 %; Immature Granulocytes Absolute 0.08 #; Lymphocytes # 2.7 10*3/uL (1.4-4.0); Mean Corpuscular HGB Conc 32.6 GM/DL (32-36); Mean Corpuscular Hemoglobin 31 PG (27-34); Mean Corpuscular Volume 96.3 FL (87-102); Mean Platelet Volume 11.6 FL (9.6-12.0); Monocytes # 1.2 10*3/uL (0.11-0.8); Monocytes % 11.9 % (1.7-12.7); Neutrophils # 5.9 10*3/uL (1.4-7.4); Neutrophils % 57.8 % (38.7-73.9); Platelet Count 170 T/CUMM (130-400); Red Blood Count 4.56 MC/CUMM (3.8-5.5); Red Cell Distribution Width 14.4 % (9.3-17.3); White Blood Count 10.1 T/CUMM (4-12)
[2016-12-11 07:25] LABS: Calcium 8.5 MG/DL (8.5-10.1); Potassium 4.8 MMOL/L (3.5-5.1)
--- NOTE | 2016-12-11 07:26 | EKG Report ---
Stationary ECG Study [facility] Test Date: 12/11/2016 7:25:58 AM Pat Name: ALYSON TRIANA Department: Room: 263 Gender: M Obstetrics Tech: SHANELLE : 1935 Requested by: Seth Starkey Order Number: [id number] Reading MD: CHERIE HAWK Intervals [place] Rate: 53 P: 73 [place]: 158 QRS: -75 QRSD: 134 T: 25 QT: 461 QTc: 444 Interpretive Statements SINUS BRADYCARDIA RIGHT BUNDLE BRANCH BLOCK Electronically Signed On 12-11-16 11:47:12 SHALE PLANER OPERATOR HELPER by CHERIE HAWK [email or web address]
[2016-12-11] MEDS: oxyCODONE/ACETAMINOPHEN 5-325 MG TABLET PO PRN (08:53)
[2016-12-11] MEDS: LOSARTAN 50 MG TABLET PO SCH (08:54)
[2016-12-11] MEDS: ISOSORBIDE MONONITRATE 30 MG TABLET PO SCH (08:54)
[2016-12-11] MEDS: ATENOLOL 25 MG TABLET PO SCH ×2 (08:54→21:08)
[2016-12-11] MEDS: CLOPIDOGREL 75 MG TABLET PO SCH (08:57)
[2016-12-11] MEDS: INSULIN ASPART PROTAMINE/ASPART 70/30 100 UNIT/ML SUBCUT SCH ×2 (08:57→21:08)
[2016-12-11] MEDS: INSULIN REGULAR 100 UNIT/ML SUBCUT SCH ×4 (08:59→21:08)
--- NOTE | 2016-12-11 10:36 | Cardiology Progress Note ---
<Bri Blackwell E - Last Filed: 12/11/16 10:39> Assessment and Plan - Time spent with patient Time spent with patient: Greater than 30 minutes (1) Dyslipidemia Status: Chronic Assessment and plan: Continue lipid-lowering agent Current Visit: Yes (2) Diabetes Status: Chronic Assessment and plan: Continue with current diabetes management. Current Visit: Yes (3) Acute ST elevation myocardial infarction (STEMI) Status: Resolved Assessment and plan: Now status post revascularization. Improving nicely. Current Visit: Yes (4) Chest pain Status: Resolved Assessment and plan: No complaints of angina Current Visit: Yes (5) Coronary artery disease Status: Chronic Assessment and plan: Known coronary artery disease now status post revascularization. Continue current plan of care. Hopefully discharge tomorrow. Current Visit: No (6) Hypertension Status: Chronic Assessment and plan: Tolerating antihypertensives appropriately. Blood pressures well controlled. Current Visit: No (7) Chronic pain Status: Chronic Assessment and plan: Consulting Dr. 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 We will closely monitor his platelet count. Current Visit: Yes Cardiology - PN: Subj Interval history: Mr. Silva is a 81 year old male who sees Dr. Dillard as his primary band presser. He has a history of an anterior myocardial infarction in 2003. He was treated with intracoronary stent placement. He had reevaluation in 2007 and his stents were open without evidence of significant disease. In 2011 he had stenting of a diagonal branch as well as of the posterolateral branch of the right coronary artery. He had done well since that time until he presented to the ER of [facility] December 08, 2016 with an acute inferior myocardial infarction with ST elevation in the inferolateral leads. He was taken emergently to the [facility] by Dr. Starkey where he had PCI of an occluded stented segment of the posterolateral branch as well as stenting of a more distal lesion of the same vessel. He did well without complication and was returned to ICU in stable condition. He was then transition to our telemetry unit overnight he has done well. This morning, patient was scheduled for discharge however, he has been in an excruciating amount of right hip pain. He was scheduled to see Dr. Deleon this week. Mr. Silva's called Dr. Deleon's office yesterday and was told that Dr. Deleon had a procedure at [facility] today at noon and would be happy to see Mr. Silva if an official consult was placed. I am placing that consult now. Hopefully, patient will be discharged home tomorrow after his pain is controlled today. Patient does have a rash on his back that has developed overnight. Upon reviewing his medications the only new medication is oxycodone. Though Plavix is new this hospital stay, he has used Plavix in the past and did not have problems such as rash while taking. I will stop the oxycodone, add Benadryl orally and give Warners for pain instead until seen and treated by Dr. Deleon. Also, this may be related to IVP dye, delayed reaction. 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 Exam (Progress Note) - Constitutional Vitals: Period Temp Pulse Resp BP Sys/Ferreira Pulse Ox Last 24 Hr 96.1 F-97.9 F 16-64 16-20 99-146/44-81 90-97 Exam: General: Appears well with no apparent distress. Pleasant and cooperative. Appears comfortable. HEENT: PERRL, normocephalic, atraumatic. Mucous membranes moist. No jaundice noted. Conjunctiva moist and clear, sclerae anicteric Neck: No JVD/HJR, no thyromegaly or lymphadenopathy noted. Cardiac: Regular rate and rhythm. No murmur rub or gallop. Lungs: Clear to auscultation without accessory muscle use to assist the respiratory pattern. Not requiring oxygen. Abdomen: Soft, bowel sounds normoactive. Nontender and nondistended. No abdominal bruit or thrill noted. No masses noted. Musculoskeletal: No fluid collection. Decreased range of motion is noted. Extremities: Right groin soft and free of hematoma or bruit No clubbing, cyanosis noted. No edema noted. Upper extremity pulses 2+. Lower extremity pulses 2+. Capillary refill less than 3 seconds. Skin: Raised rash noted to back. No skin breakdown appreciated. Neuro: Awake, alert and oriented 3. Moves all extremities well without hemiparesis or paralysis. No essential tremor is appreciated. Result/EKG - Labs CBC & BMP: 12/11/16 06:33 12/11/16 06:33 Lab Results: I have reviewed the past 24 hour labs Labs: Laboratory Results - last 24 hr 12/10/16 12/10/16 12/10/16 07:54 11:30 15:17 WBC RBC Hgb Hct MCV MCH MCHC RDW Plt Count MPV Neut % (Auto) Lymph % (Auto) [place] % (Auto) Eos % (Auto) Baso % (Auto) Neut # (Auto) Lymph # (Auto) [place] # (Auto) Eos # (Auto) Baso # (Auto) Immature Gran % Nucleated RBC % Immature Gran # Nucleated RBCs # Sodium Potassium Chloride Carbon Dioxide Anion Gap BUN Creatinine GFR Calculation BUN/Creatinine Ratio Glucose POC Glucose 81 95 92 Calculated Osmolality Calcium Magnesium 12/10/16 12/11/16 12/11/16 19:41 06:33 06:33 WBC 10.1 RBC 4.56 Hgb 14.3 Hct 43.9 MCV 96.3 MCH 31 MCHC 32.6 RDW 14.4 Plt Count 170 MPV 11.6 Neut % (Auto) 57.8 Lymph % (Auto) 27.0 [place] % (Auto) 11.9 Eos % (Auto) 1.9 Baso % (Auto) 0.6 Neut # (Auto) 5.9 Lymph # (Auto) 2.7 [place] # (Auto) 1.2 H Eos # (Auto) 0.2 Baso # (Auto) 0.1 Immature Gran % 0.8 Nucleated RBC % 0.0 Immature Gran # 0.08 Nucleated RBCs # 0.00 Sodium 143 Potassium 4.8 Chloride 105 Carbon Dioxide 28 Anion Gap 14.8 BUN 24 H Creatinine 1.00 GFR Calculation 85 BUN/Creatinine Ratio 24.00 H Glucose 153 H POC Glucose 170 H Calculated Osmolality 291.0 Calcium 8.5 Magnesium 2.0 12/11/16 08:16 WBC RBC Hgb Hct MCV MCH MCHC RDW Plt Count MPV Neut % (Auto) Lymph % (Auto) [place] % (Auto) Eos % (Auto) Baso % (Auto) Neut # (Auto) Lymph # (Auto) [place] # (Auto) Eos # (Auto) Baso # (Auto) Immature Gran % Nucleated RBC % Immature Gran # Nucleated RBCs # Sodium Potassium Chloride Carbon Dioxide Anion Gap BUN Creatinine GFR Calculation BUN/Creatinine Ratio Glucose POC Glucose 170 H Calculated Osmolality Calcium Magnesium - Diagnostic Findings Procedure: Chest x-ray: report reviewed by me - EKG EKG results: interpreted by me EKG shows: sinus rhythm Quality Measures - VTE Contraindication to Pharmacological VTE Prophylaxis: High Risk of Bleeding Specialty Discharge - Follow Up or Referrals Follow up with: Rob Georges MD [Physician] - ( Follow up appointment with Dr. Georges scheduled for December at 1:50. Arrive at 1:30 for the following labs : BMp, Mg, CBC. EKG) <Seth Starkey - Last Filed: 12/11/16 13:17> Assessment and Plan (1) Acute ST elevation myocardial infarction (STEMI) Status: Resolved Current Visit: Yes (2) History of coronary artery stent placement Problem details: Stents to: first diagonal branch, distal RCA 2, second diagonal branch, proximal LAD. Status: Chronic Current Visit: Yes (3) Coronary artery disease Status: Chronic Current Visit: No (4) Diabetes mellitus Status: Deleted Current Visit: No (5) Hypertension Status: Chronic Current Visit: No Cardiology - PN: Subj Interval history: He is stable from a cardiac standpoint and doing well and our plan is going to be to have the pain physicians review at his request. Exam (Progress Note) - Constitutional Vitals: Period Temp Pulse Resp BP Sys/Ferreira Pulse Ox Last 24 Hr 96.1 F-98.3 F 16-64 16-20 99-146/44-81 90-97 Result/EKG - Labs CBC & BMP: 12/11/16 06:33 12/11/16 06:33 Labs: Laboratory Results - last 24 hr 12/10/16 12/10/16 12/10/16 07:54 15:17 19:41 WBC RBC Hgb Hct MCV MCH MCHC RDW Plt Count MPV Neut % (Auto) Lymph % (Auto) [place] % (Auto) Eos % (Auto) Baso % (Auto) Neut # (Auto) Lymph # (Auto) [place] # (Auto) Eos # (Auto) Baso # (Auto) Immature Gran % Nucleated RBC % Immature Gran # Nucleated RBCs # Sodium Potassium Chloride Carbon Dioxide Anion Gap BUN Creatinine GFR Calculation BUN/Creatinine Ratio Glucose POC Glucose 81 92 170 H Calculated Osmolality Calcium Magnesium 12/11/16 12/11/16 12/11/16 06:33 06:33 08:16 WBC 10.1 RBC 4.56 Hgb 14.3 Hct 43.9 MCV 96.3 MCH 31 MCHC 32.6 RDW 14.4 Plt Count 170 MPV 11.6 Neut % (Auto) 57.8 Lymph % (Auto) 27.0 [place] % (Auto) 11.9 Eos % (Auto) 1.9 Baso % (Auto) 0.6 Neut # (Auto) 5.9 Lymph # (Auto) 2.7 [place] # (Auto) 1.2 H Eos # (Auto) 0.2 Baso # (Auto) 0.1 Immature Gran % 0.8 Nucleated RBC % 0.0 Immature Gran # 0.08 Nucleated RBCs # 0.00 Sodium 143 Potassium 4.8 Chloride 105 Carbon Dioxide 28 Anion Gap 14.8 BUN 24 H Creatinine 1.00 GFR Calculation 85 BUN/Creatinine Ratio 24.00 H Glucose 153 H POC Glucose 170 H Calculated Osmolality 291.0 Calcium 8.5 Magnesium 2.0 12/11/16 12:00 WBC RBC Hgb Hct MCV MCH MCHC RDW Plt Count MPV Neut % (Auto) Lymph % (Auto) [place] % (Auto) Eos % (Auto) Baso % (Auto) Neut # (Auto) Lymph # (Auto) [place] # (Auto) Eos # (Auto) Baso # (Auto) Immature Gran % Nucleated RBC % Immature Gran # Nucleated RBCs # Sodium Potassium Chloride Carbon Dioxide Anion Gap BUN Creatinine GFR Calculation BUN/Creatinine Ratio Glucose POC Glucose 171 H Calculated Osmolality Calcium Magnesium
[2016-12-11] MEDS ORDERED: diphenhydrAMINE 2% CREAM 28 GM TUBE TOP PRN (10:49)
[2016-12-11] MEDS: diphenhydrAMINE CAP 25 MG CAPSULE PO SCH ×2 (12:20→21:08)
--- NOTE | 2016-12-11 12:38 | Discharge Summary ---
<Bri Blackwell E - Last Filed: 12/12/16 09:29> Hospital Course - Hospital Course Hospital Course: Mr. Silva is a 81 year old male who sees Dr. Dillard as his primary transfer knitter. He has a history of an anterior myocardial infarction in 2003. He was treated with intracoronary stent placement. He had reevaluation in 2007 and his stents were open without evidence of significant disease. In 2011 he had stenting of a diagonal branch as well as of the posterolateral branch of the right coronary artery. He had done well since that time until he presented to the ER of [facility] December 08, 2016 with an acute inferior myocardial infarction with ST elevation in the inferolateral leads. He was taken emergently to the [facility] by Dr. Starkey where he had PCI of an occluded stented segment of the posterolateral branch as well as stenting of a more distal lesion of the same vessel. He did well without complication and was returned to ICU in stable condition. He was then transition to our telemetry unit overnight he has done well. Overnight, his labs are stable and his right groin soft and free of hematoma or bruit. He is anxious for release home. Having felt he met maximal medical therapy, he is being discharged home in stable condition. He is being given a follow-up appointment with Dr. Dillard in one week. At that visit she'll have the following labs: BMP, magnesium and CBC. EKG will also be obtained. Dr. Deleon, Pain Medicine, was consulted and saw the patient during the hospital stay. Patient was prescribed Neurontin 3 times a day and is being given a follow-up appointment to see him in one week. Cardiac discharge medications include the following: Aspirin 81 mg orally daily Plavix 75 mg orally daily Atenolol 25 mg orally twice a day Cozaar 50 Milgram's orally daily Atorvastatin 20 mg orally each evening He will resume his home insulin routine Patient has a history of thrombocytopenia in the past requiring splenectomy. His platelet count will need to be closely monitored while taking aspirin and Plavix. We will arrange for CBC within one week with Dr. Dillard's office - Time spent with patient Time with patient DS: Greater than 30 minutes Diagnosis - Discharge Diagnosis (1) Dyslipidemia Status: Chronic (2) Diabetes Status: Chronic (3) Acute ST elevation myocardial infarction (STEMI) Status: Resolved (4) Chest pain Status: Resolved (5) Coronary artery disease Status: Chronic (6) Hypertension Status: Chronic (7) Chronic pain Status: Chronic (8) History of thrombocytopenia Status: Chronic Specialty Discharge - Follow Up or Referrals Follow up with: Deandre Dillard MD [Physician] - 12/19/16 9:10 am (1 week. BMP, Mg, CBC) Discharge Plan - Discharge Data Disposition: Disch To Home/Self Care Discharge Diet: heart healthy Activity: other Hygiene: other (post-cath expectations) Weight Bearing at Discharge: other (O's Expectations) Driving: other (post-cath expectations) Contact your physician if you experience:: fever over 101, Difficulty voiding, Redness or swelling, Nausea/Vomiting, Shortness of breath, Bleeding, pain uncontrolled by pain medications - Discharge Medications New Clopidogrel [Plavix] 75 mg PO DAILY #30 tablet Gabapentin Cap/Tab [Neurontin Cap/Tab] 100 mg PO TID #90 capsule Continue Atorvastatin [Lipitor] 20 mg PO BEDTIME Aspirin [Ecotrin] 81 mg PO BEDTIME Insulin Aspart Prot/Asp 70/30 [NovoLOG Mix 70/30] 50 unit SUBCUT DAILY W/ BREAKFAST Insulin Aspart Prot/Asp 70/30 [NovoLOG Mix 70/30] 36 unit SUBCUT BEDTIME Losartan [Cozaar] 50 mg PO BEDTIME Nitroglycerin [Nitroglycerin SL Tab] 0.4 mg SL Q5M PRN #100 tablet PRN Reason: Chest Pain Pantoprazole Tab [Protonix Tab] 40 mg PO BEDTIME Atorvastatin [Lipitor] 20 mg PO BEDTIME tablet HYDROcodone/ACETAMIN 7.5-325 [[place] 7.5-325] 1 tablet PO Q6H PRN PRN Reason: Pain Moderate To Severe (4-10) Atenolol [Tenormin] 25 mg PO BID #60 tablet Isosorbide Mononitrate [Imdur] 30 mg PO DAILY #30 tablet - Follow Up or Referral Follow Up: Deandre Dillard MD [Physician] - 12/19/16 9:10 am (1 week. BMP Mg, CBC) - Forms/Instructions Instructions: Myocardial Infarction (GEN), Coronary Artery Disease (GEN), Left Heart Catheterization (DC), Heart Healthy Diet (GEN), Coronary Intravascular Stent Placement (DC) Additional Discharge Instructions: Please cancel appointment with Dr. Georges and schedule with Dr. Dillard (he is his primary transfer knitter). Needs BMP, Mg, CBC 1 week. Also, please verify patient received follow-up appointment Dr. Deleon 1 week (per Dr. Deleon's consult yesterday) Exam - Constitutional Vitals: Period Temp Pulse Resp BP Sys/Ferreira Pulse Ox Last 24 Hr 96.7 F-98.4 F 50-58 16-18 115-135/54-74 91-98 Exam: General: Appears well with no apparent distress. Pleasant and cooperative. Appears comfortable. HEENT: PERRL, normocephalic, atraumatic. Mucous membranes moist. No jaundice noted. Conjunctiva moist and clear, sclerae anicteric Neck: No JVD/HJR, no thyromegaly or lymphadenopathy noted. Cardiac: Regular rate and rhythm. No murmur rub or gallop. Lungs: Clear to auscultation without accessory muscle use to assist the respiratory pattern. Not requiring oxygen. Abdomen: Soft, bowel sounds normoactive. Nontender and nondistended. No abdominal bruit or thrill noted. No masses noted. Musculoskeletal: No fluid collection. Decreased range of motion is noted. Extremities: Right groin soft and free of hematoma or bruit No clubbing, cyanosis noted. No edema noted. Upper extremity pulses 2+. Lower extremity pulses 2+. Capillary refill less than 3 seconds. Skin: Raised rash noted to back. No skin breakdown appreciated. Neuro: Awake, alert and oriented 3. Moves all extremities well without hemiparesis or paralysis. No essential tremor is appreciated. Discharge Results Procedures and tests throughout hospitalization: Pending Orders 12/12/16 10:04 CBC [Comp Blood Count Auto Diff] Stat Labs on day of discharge: Labs from last 24 hours 12/12/16 12/11/16 12/11/16 07:22 20:30 16:14 POC Glucose 119 H 250 H 154 H 12/11/16 12:00 POC Glucose 171 H - Imaging and Cardiology Cardiology Procedure: report reviewed by me Procedure: Chest x-ray: report reviewed by me DS: Provider Date of admission: 12/09/16 05:33 Primary care physician: Will Rich, Attending physician on admission: Seth Starkey MD Consults: 12/09/16 06:14 Consult to Pastoral Services [CONS] Routine Comment: Pastoral Screen: Request Solderer Electronic Visit Pastoral Screen Source of Request: Patient 12/11/16 10:35 Consult to Physician [CONS] Routine Comment: Dr. Deleon. Severe right hip pain. Consulting Provider: 12/11/16 10:46 Consult to Cardiac Rehabilitation [CONS] Routine Reason for Cardiac Rehabilitation: Other Consult Comment: evaluate for rehab Discharging clinician: Bri Blackwell NP Expected date of discharge: 12/12/16 <Seth Starkey - Last Filed: 12/12/16 10:11> Hospital Course - Hospital Course Hospital Course: We are checking a CBC this morning to evaluate whether his platelet counts continuing to drop. He has been fully instructed related activities medications and precautions and we will discharge him today to follow-up with Dr. Dillard as outlined above. I have discussed in detail the particulars of this case and I have examined the patient and reviewed the patient's chart both current and old. I was directly involved in the patient's evaluation and management and I completely agree with Bri Blackwell NP regarding this patient's evaluation and treatment plan. Diagnosis - Discharge Diagnosis (1) Acute ST elevation myocardial infarction (STEMI) Status: Resolved (2) History of coronary artery stent placement Status: Chronic (3) Coronary artery disease Status: Chronic (4) Diabetes mellitus Status: Deleted (5) Hypertension Status: Chronic
--- NOTE | 2016-12-11 12:39 | Pain Management Consult Note ---
Assessment and Plan (1) Lumbar radiculopathy Problem details: Long long-standing and progressive right lower extremity pain Status: Acute Assessment and plan: The patient has classic neuropathic pain right lower extremity consistent with a right-sided lumbar radiculopathy. The pain is gradually progressed since his back surgery 2 years ago. I treated him for similar pain 2 years ago. Over the past 2 months the pain spends severe. He reports that the opioids really have not helped much. He reports a burning aching throbbing discomfort that is constant worse with activity. If he sits with his right leg crossed this improves the pain. It is unlikely that high-dose opiates will help this, pain, he will need adjuvant medicines such as Neurontin and thus we'll start this today. He'll need to be seen fairly quickly in clinic swallow try to get in the next week. Unfortunately with recent stent he is not a candidate for coming off the blood thinner for a year and thus not a candidate for injections for the next year. He will need careful medical management of this problem. Agree with discharge planning. Current Visit: Yes History of Present Illness Chief complaint: right leg pain History of present illness: Mr. Silva is a 81 year old male with progressive right lower extremity pain. The pain started several years ago, has gotten much worse over the past 6 months to the point that it hurts to move at all. The pain progresses from the right buttock to the right foot. Since throbbing aching burning discomfort that is helped little IV opioids. The pain is constant. Home Medications Medication Instructions Recorded Confirmed Type Aspirin [Ecotrin] 81 mg PO BEDTIME 08/04/15 12/09/16 History Atorvastatin [Lipitor] 20 mg PO BEDTIME 08/04/15 12/09/16 History Insulin Aspart Prot/Asp 70/30 36 unit SUBCUT BEDTIME 08/04/15 12/09/16 History [NovoLOG Mix 70/30] Insulin Aspart Prot/Asp 70/30 50 unit SUBCUT DAILY W/BREAKFAST 08/04/15 History [NovoLOG Mix 70/30] Losartan [Cozaar] 50 mg PO BEDTIME 08/04/15 12/09/16 History Nitroglycerin [Nitroglycerin SL 0.4 mg SL Q5M PRN #100 tablet 08/04/15 12/09/16 Rx Tab] Pantoprazole Tab [Protonix Tab] 40 mg PO BEDTIME 10/24/16 12/09/16 History Atenolol [Tenormin] 25 mg PO BID #60 tablet 10/26/16 12/09/16 Rx Atorvastatin [Lipitor] 20 mg PO BEDTIME tablet 10/26/16 12/09/16 Rx Isosorbide Mononitrate [Imdur] 30 mg PO DAILY #30 tablet 10/26/16 12/09/16 Rx HYDROcodone/ACETAMIN 7.5-325 1 tablet PO Q6H PRN 12/09/16 12/09/16 History [[place] 7.5-325] Allergies Allergy/AdvReac Type Severity Reaction Status Date / Time No Known Allergies Allergy Unverified 08/04/15 10:46 Medical,Surgical,& Family Hx - Medical History Cardio: History of: Hypertension, [place] (x3) HEENT: History of: Eye Problem (cataract both eyes) Endocrine: History of: Diabetes Mellitus (IDDM) Rheumatology: History of;: Fibromyalgia, Rheumatoid Arthritis Genitourinary: History of: Kidney Stones Gastrointestinal: No history of: GERD Musculoskeletal: History of: Back/Neck Problems, Musculoskeletal Problems ( arthritis) Hematology: History of: Bleeding Problems (Elevated platlets R/T spleenectomy) - Surgical History Cardiac Surgeries: Sugical HX of: Cardiac Catheterization (stents x5) Abdominal Surgeries: Surgical HX of: Abdominal Surgery, Appendectomy, Cholecystectomy, Colonoscopy, EGD Orthopedic Surgeries: Surgical HX of;: Orthopedic Surgery (bl knee scope and repair), Spinal Surgery (spinal spurs removed) - Family History Family History: Reports;: Family Diabetes (mother), Family Heart Disease (mother ), Family Hypertension (mother), Family Stroke (mother) Denies;: Family Anesthesia Reaction, Family Cancer, Family Hematology, Family Psychiatric Problems - Social History Smoking Status: Never smoker Frequency of Alcohol Use: None Type of Drug Use: None Quality Measures - VTE Contraindication to Pharmacological VTE Prophylaxis: High Risk of Bleeding - Constitutional Constitutional: Present: daytime sleepiness, fatigue - Cardiovascular Cardiovascular: Present: dyspnea on exertion - Gastrointestinal Gastrointestinal: Present: constipation - Neurological Neurological: Present: abnormal gait, numbness, paresthesias (right lower extremity) Exam - Constitutional Vitals: Period Temp Pulse Resp BP Sys/Ferreira Pulse Ox Last 24 Hr 96.1 F-98.3 F 16-64 16-20 99-146/44-81 90-97 General appearance: no acute distress, over weight - Head Head exam: Present: normocephalic - Eye Eye exam: Present: EOMI - Respiratory Respiratory exam: Present: clear to auscultation bilaterally - Cardiovascular Cardiovascular exam: Present: RRR - GI/Abdominal GI/Abdominal exam: Present: normal bowel sounds - Back Exam Back exam: Present: vertebral tenderness - Neurological Exam Neurological exam: Present: alert, oriented X3, abnormal gait, CN II-XII intact , motor sensory deficit (right lower extremity with motor strength right foot 3/ 5). Absent: reflexes normal - Skin Skin exam: Present: normal color Results - Labs CBC & BMP: 12/11/16 06:33 12/11/16 06:33 Specialty Discharge - Follow Up or Referrals Follow up with: Rob Georges MD [Physician] - ( Follow up appointment with Dr. Georges scheduled for December at 1:50. Arrive at 1:30 for the following labs : BMp, Mg, CBC. EKG)
[2016-12-11] MEDS: GABAPENTIN 100 MG CAPSULE PO SCH ×2 (14:17→21:08)
[2016-12-11] MEDS: ASPIRIN EC 81 MG TABLET PO SCH (21:08)
[2016-12-11] MEDS: ATORVASTATIN 20 MG TABLET PO SCH (21:08)
[2016-12-11] MEDS: PANTOPRAZOLE 40 MG TABLET PO SCH (21:08)
--- NOTE | 2016-12-12 07:28 | EKG Report ---
Stationary ECG Study 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
[2016-12-12 07:58] VITALS: BP 129/64
[2016-12-12] MEDS: INSULIN REGULAR 100 UNIT/ML SUBCUT SCH (08:59)
[2016-12-12] MEDS: LOSARTAN 50 MG TABLET PO SCH (09:00)
[2016-12-12] MEDS: CLOPIDOGREL 75 MG TABLET PO SCH (09:00)
[2016-12-12] MEDS: ATENOLOL 25 MG TABLET PO SCH (09:00)
[2016-12-12] MEDS: ISOSORBIDE MONONITRATE 30 MG TABLET PO SCH (09:00)
[2016-12-12] MEDS: diphenhydrAMINE CAP 25 MG CAPSULE PO SCH (09:00)
[2016-12-12] MEDS: INSULIN ASPART PROTAMINE/ASPART 70/30 100 UNIT/ML SUBCUT SCH (09:01)
[2016-12-12] MEDS: GABAPENTIN 100 MG CAPSULE PO SCH (09:01)
[2016-12-12 10:09] LABS: Basophils % 0.4 % (0.0-0.8); Eosinophils # 0.2 10*3/uL (0.0-0.87); Eosinophils % 2.1 % (0.00-10.9); Hematocrit 43.2 VOL% (42.0-52.0); Hemoglobin 14.5 GM/DL (14.0-18.0); Immature Granulocytes Absolute 0.09 #; Mean Corpuscular HGB Conc 33.6 GM/DL (32-36); Mean Corpuscular Hemoglobin 32 PG (27-34); Mean Corpuscular Volume 94.1 FL (87-102); Mean Platelet Volume 11.5 FL (9.6-12.0); Monocytes # 0.9 10*3/uL (0.11-0.8); Monocytes % 9.5 % (1.7-12.7); Platelet Count 203 T/CUMM (130-400); Red Blood Count 4.59 MC/CUMM (3.8-5.5); Red Cell Distribution Width 14.4 % (9.3-17.3); White Blood Count 9.2 T/CUMM (4-12)
== END 2016-12-12 12:26 | disposition home or self-care (01) | DRG 247 ==
LOC: N.ED 03:06 → N.ICU 04:18 → N.TELES 12-10 11:54
PROVIDERS: ADMIT Internal Medicine Interventional Cardiology; ATTEND Internal Medicine Interventional Cardiology
PROC: CLCCHCL (ICD-10-PCS; 2016-12-09 04:45)

== ENCOUNTER 2017-05-17 01:43 | Observation (INO) ==
[2017-05-17 02:49] LABS: PT Patient Result 10.7 SECS
[2017-05-17 02:55] LABS: Calcium 8.6 MG/DL (8.5-10.1); Magnesium 2.1 MG/DL (1.8-2.4); Osmolality,Calculated 284.1 MOS/KG (273-304)
--- NOTE | 2017-05-17 03:31 | Emergency Department Note ---
Arrival - Arrival Chief Complaint: Chest Pain Stated Complaint: chest pain ED Nursing Triage Note: patient c/o dull left sided cp with nausea that started after breakfast. 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 a history of anterior wall myocardial infarction in 2003 for which he received a stent who had a repeat cardiac catheterization in 2007 which showed no interval coronary artery obstruction who in 2011 had stenting of the diagonal branch and posterior lateral branch of the right coronary artery until November 2016 when he presented with an acute inferior wall myocardial infarction with ST segment elevation where a PCI of an occluded segment of the right coronary artery was stented as well as the posterior lateral branch of the right coronary artery who has had 3 previous myocardial infarction and has a total of 7 stents and he presents with intermittent chest pain throughout the day. He has not felt well throughout the day and did not get out of bed and complained of nausea without vomiting. He has had no shortness of breath diaphoresis back pain nor abdominal pain. He takes aspirin Plavix atenolol Cozaar and Lipitor. He has a history of a previous splenectomy for thrombocytopenia. Allergies/Adverse Reactions: Allergies Allergy/AdvReac Type Severity Reaction Status Date / Time Shellfish AdvReac Vomiting Verified 03/28/17 01:07 Home Medications: Home Medications Medication Instructions Recorded Confirmed Type Aspirin [Ecotrin] 81 mg PO BEDTIME 08/04/15 05/17/17 History Atorvastatin [Lipitor] 20 mg PO BEDTIME 08/04/15 05/17/17 History Insulin Aspart Prot/Asp 70/30 36 unit SUBCUT BEDTIME 08/04/15 05/17/17 History [NovoLOG Mix 70/30] Insulin Aspart Prot/Asp 70/30 50 unit SUBCUT DAILY W/BREAKFAST 08/04/15 History [NovoLOG Mix 70/30] Losartan [Cozaar] 50 mg PO BEDTIME 08/04/15 05/17/17 History Nitroglycerin [Nitroglycerin SL 0.4 mg SL Q5M PRN #100 tablet 08/04/15 05/17/17 Rx Tab] Pantoprazole Tab [Protonix Tab] 40 mg PO BEDTIME 10/24/16 05/17/17 History Atenolol [Tenormin] 25 mg PO BID #60 tablet 10/26/16 05/17/17 Rx Isosorbide Mononitrate [Imdur] 30 mg PO DAILY #30 tablet 10/26/16 05/17/17 Rx HYDROcodone/ACETAMIN 7.5-325 1 tablet PO Q6H PRN 12/09/16 05/17/17 History [[place] 7.5-325] Clopidogrel [Plavix] 75 mg PO DAILY #30 tablet 12/12/16 05/17/17 Rx Gabapentin Cap/Tab [Neurontin 100 mg PO TID #90 capsule 12/12/16 05/17/17 Rx Cap/Tab] Ondansetron [Ondansetron Odt] 8 mg PO Q4H PRN #10 tab.rapdis 03/04/17 05/17/17 Rx Review of System - Review of System Constitutional: Absent: fever, night sweats Eyes: Absent: redness, vision change Head/Ears/Nose/Throat: Absent: epistaxis, nasal drainage Respiratory: Absent: respiratory distress, wheezing Cardiovascular: Present: chest pain. Absent: dyspnea on exertion, orthopnea Gastrointestinal: Absent: diarrhea, constipation Genitourinary male: Absent: hematuria, discharge Musculoskeletal: Absent: joint swelling, lower back pain Skin: Absent: change in color, change in hair/nails Neurological: Absent: numbness, paresthesias Psychiatric: Absent: suicidal thoughts, homicidal thoughts Endocrine: Absent: heat intolerance, polydipsia Hematological/Lymphatic: Absent: easy bruising, lymphadenopathy Allergic/Immunologic: Absent: urticaria, itchy eyes Medical,Surgical,& Family Hx - Medical History Cardio: History of: Hypertension, [place] (x3) HEENT: History of: Eye Problem (cataract both eyes) Endocrine: History of: Diabetes Mellitus (IDDM) Rheumatology: History of;: Fibromyalgia, Rheumatoid Arthritis Genitourinary: History of: Kidney Stones Gastrointestinal: No history of: GERD Musculoskeletal: History of: Back/Neck Problems, Musculoskeletal Problems ( arthritis) Hematology: History of: Bleeding Problems (Elevated platlets R/T spleenectomy) - Surgical History Cardiac Surgeries: Sugical HX of: Cardiac Catheterization (stents x7) Abdominal Surgeries: Surgical HX of: Abdominal Surgery, Appendectomy, Cholecystectomy, Colonoscopy, EGD Orthopedic Surgeries: Surgical HX of;: Orthopedic Surgery (bl knee scope and repair), Spinal Surgery (spinal spurs removed) - Family History Family History: Reports;: Family Diabetes (mother), Family Heart Disease (mother ), Family Hypertension (mother), Family Stroke (mother) Denies;: Family Anesthesia Reaction, Family Cancer, Family Psychiatric Problems - Social History Smoking Status: Never smoker Frequency of Alcohol Use: None Type of Drug Use: None Exam Vital Signs: Vital Signs Temperature 98.7 F 05/17/17 01:45 Pulse Rate 57 L 05/17/17 01:45 Respiratory Rate 20 05/17/17 01:45 Blood Pressure 162/113 05/17/17 01:45 O2 Sat by Pulse Oximetry 97 05/17/17 01:45 - Eye Eye exam: Present: PERRL, EOMI - ENT ENT exam: Present: normal exam, normal oropharynx - Neck Neck exam: Present: normal inspection, full ROM - Chest Chest inspection: Present: normal inspection, symmetric chest wall rise - Respiratory Respiratory exam: Present: normal lung sounds bilaterally - Cardiovascular Cardiovascular exam: Present: regular rate, normal rhythm - Abdominal Exam Abdominal exam: Present: soft, normal bowel sounds Results - Labs CBC & BMP: 05/17/17 02:19
[2017-05-17] MEDS ORDERED: DEXTROSE 50% 25 GM/50 ML VIAL IV PRN (04:05)
[2017-05-17] MEDS ORDERED: GLUCAGON 1 MG VIAL IM PRN (04:05)
[2017-05-17 04:50] LABS: Basophils % 0.3 % (0.0-0.8); Eosinophils # 0.2 10*3/uL (0.0-0.87); Eosinophils % 2.3 % (0.00-10.9); Hematocrit 40.5 VOL% (42.0-52.0); Hemoglobin 13.8 GM/DL (14.0-18.0); Immature Granulocytes % 0.5 %; Immature Granulocytes Absolute 0.04 #; Lymphocytes # 2.2 10*3/uL (1.4-4.0); Lymphocytes % 27.7 % (21.2-54.2); Mean Corpuscular HGB Conc 34.1 GM/DL (32-36); Mean Corpuscular Hemoglobin 33 PG (27-34); Mean Corpuscular Volume 95.5 FL (87-102); Monocytes # 1.1 10*3/uL (0.11-0.8); Monocytes % 13.6 % (1.7-12.7); Neutrophils # 4.4 10*3/uL (1.4-7.4); Neutrophils % 55.6 % (38.7-73.9); Platelet Count 156 T/CUMM (130-400); Red Blood Count 4.24 MC/CUMM (3.8-5.5); Red Cell Distribution Width 15.1 % (9.3-17.3); White Blood Count 7.8 T/CUMM (4-12)
--- NOTE | 2017-05-17 08:23 | EKG Report ---
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
[2017-05-17] MEDS: INSULIN REGULAR 100 UNIT/ML SUBCUT SCH ×4 (08:24→20:52)
--- NOTE | 2017-05-17 08:24 | EKG Report ---
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
--- NOTE | 2017-05-17 09:25 | Cardiology History & Physical ---
Assessment and Plan (1) Gastroesophageal reflux disease Status: Acute Current Visit: No (2) Coronary artery disease Status: Chronic Current Visit: No (3) History of coronary artery stent placement Problem details: Stents to: first diagonal branch, distal RCA 2, second diagonal branch, proximal LAD. Status: Chronic Current Visit: No (4) Chest pain Status: Resolved Assessment and plan: 05/17: Patient has chest discomfort that is somewhat atypical for angina even by his history. I think the only way we are going to be able to evaluate this completely will be to repeat his catheterization. This will be scheduled for tomorrow. I have reviewed with him the risks benefits and alternatives of the procedure. He appears to understand these and is agreeable to proceeding. Current Visit: No History of Present Illness Chief complaint: I had an episode of severe nausea and chest pain History of present illness: Mr. Silva is a 81 year old male who has had multiple percutaneous coronary interventions in the past. He presented in November 2016 with an acute inferolateral myocardial infarction with ST elevation. He underwent stenting of his mid posterior lateral as well as the ostium the posterior lateral at the bifurcation of the PDA and had a good angiographic result. He presents now with chest discomfort and an episode of dysphoria which she says was different than the chest discomfort he experienced when he had his myocardial infarction. His troponins are only very minimally elevated. We discussed evaluation options including stress testing and after review with him I think the best approach is going to be to proceed with invasive evaluation. Risks benefits and alternatives have been reviewed with the patient. We will attempt to go from his right wrist as he has problems lying flat because of some issues with his right leg. He denies any recent fever chills cough or sputum. He had no nausea or vomiting. Home Medications Medication Instructions Recorded Confirmed Type Aspirin [Ecotrin] 81 mg PO BEDTIME 08/04/15 05/17/17 History Atorvastatin [Lipitor] 20 mg PO BEDTIME 08/04/15 05/17/17 History Insulin Aspart Prot/Asp 70/30 36 unit SUBCUT BEDTIME 08/04/15 05/17/17 History [NovoLOG Mix 70/30] Insulin Aspart Prot/Asp 70/30 50 unit SUBCUT DAILY W/BREAKFAST 08/04/15 History [NovoLOG Mix 70/30] Losartan [Cozaar] 50 mg PO BEDTIME 08/04/15 05/17/17 History Nitroglycerin [Nitroglycerin SL 0.4 mg SL Q5M PRN #100 tablet 08/04/15 05/17/17 Rx Tab] Pantoprazole Tab [Protonix Tab] 40 mg PO BEDTIME 10/24/16 05/17/17 History Atenolol [Tenormin] 25 mg PO BID #60 tablet 10/26/16 05/17/17 Rx Isosorbide Mononitrate [Imdur] 30 mg PO DAILY #30 tablet 10/26/16 05/17/17 Rx HYDROcodone/ACETAMIN 7.5-325 1 tablet PO Q6H PRN 12/09/16 05/17/17 History [[place] 7.5-325] Clopidogrel [Plavix] 75 mg PO DAILY #30 tablet 12/12/16 05/17/17 Rx Gabapentin Cap/Tab [Neurontin 100 mg PO TID #90 capsule 12/12/16 05/17/17 Rx Cap/Tab] Ondansetron [Ondansetron Odt] 8 mg PO Q4H PRN #10 tab.rapdis 03/04/17 05/17/17 Rx Allergies Allergy/AdvReac Type Severity Reaction Status Date / Time Shellfish AdvReac Vomiting Verified 03/28/17 01:07 Medical,Surgical,& Family Hx - Medical History Cardio: History of: CAD, Hypertension, [place] (x3) HEENT: History of: Eye Problem (cataract both eyes) Endocrine: History of: Diabetes Mellitus (IDDM) Rheumatology: History of;: Fibromyalgia, Rheumatoid Arthritis Genitourinary: History of: Kidney Stones Gastrointestinal: No history of: GERD Musculoskeletal: History of: Back/Neck Problems, Musculoskeletal Problems ( arthritis) Hematology: History of: Bleeding Problems (Elevated platlets R/T spleenectomy) - Surgical History Cardiac Surgeries: Sugical HX of: Cardiac Catheterization (stents x7) Neurologic Surgeries: Patient denies: Neurologic Surgery Abdominal Surgeries: Surgical HX of: Abdominal Surgery (splenectomy), Appendectomy, Cholecystectomy, Colonoscopy, EGD Reproductive Surgeries: Patient denies;: Genitourinary Surgery Orthopedic Surgeries: Surgical HX of;: Orthopedic Surgery (bl knee scope and repair), Spinal Surgery (spinal spurs removed) - Family History Family History: Reports;: Family Diabetes (mother), Family Heart Disease (mother ), Family Hypertension (mother), Family Stroke (mother) Denies;: Family Anesthesia Reaction, Family Cancer, Family Psychiatric Problems - Social History Smoking Status: Never smoker Frequency of Alcohol Use: None Type of Drug Use: None Cardiology Physical Exam - Constitutional Vitals: Vital Signs Temp Pulse Resp BP Pulse Ox 98.7 F 50 L 16 140/75 94 L 05/17/17 08:00 05/17/17 08:00 05/17/17 08:00 05/17/17 08:00 05/17/17 08:00 Intake and Output 05/16/17 05/17/17 05/17/17 23:59 07:59 15:59 Intake Total 0 / 0 Balance 0 / 0 Intake: Oral 0 / 0 Other: # Voids 0 # Bowel Movements 0 Weight 96.19 kg Patient Weight 05/17/17 23:59 Weight 96.19 kg Exam: Physical examination: General: The patient is awake and alert and oriented x-3. Mood and affect are normal. HEENT: Normocephalic, sclera are clear there are no lid xanthelasmas noted. Oral mucosa is free of cyanosis or pallor. Neck: The neck is supple without JVD. Carotid upstrokes are normal volume and amplitude. There is no audible bruit. There is no palpable thyroid. Trachea is midline. Chest: Lungs: The patient is comfortable at rest without intercostal retractions or abdominal breathing. There are no adventitial sounds rales rubs rhonchi or wheezes noted. Cardiovascular: The PMI is nondisplaced. No palpable thrill S3 or S4. There is a regular rate and rhythm with no murmur rub or gallop noted. Dorsalis pedis posterior tibial and femoral pulses are 2+ and equal bilaterally. Abdomen: Abdomen is soft and nontender with normal active bowel sounds. There is no palpable mass or organomegaly noted. There is no midline bruit. Extremities exam: There is no cyanosis clubbing or edema. Skin: Skin is warm and dry without ecchymosis or urticaria or skin rash. There are no palpable nodules. Musculoskeletal: There is no kyphosis or scoliosis noted. Result/EKG - Labs CBC & BMP: 05/17/17 02:19 05/17/17 02:19 Labs: Laboratory Results - last 24 hr 05/17/17 05/17/17 05/17/17 02:19 02:19 02:19 WBC RBC Hgb Hct MCV MCH MCHC RDW Plt Count MPV Neut % (Auto) Lymph % (Auto) Williamson % (Auto) Eos % (Auto) Baso % (Auto) Neut # (Auto) Lymph # (Auto) Williamson # (Auto) Eos # (Auto) Baso # (Auto) Immature Gran % Nucleated RBC % Immature Gran # Nucleated RBCs # Immature Plt Fraction INR 1.0 PT Patient/Control Mix 10.7 Sodium 142 Potassium 4.0 Chloride 108 H Carbon Dioxide 29 Anion Gap 9.0 BUN 12 Creatinine 0.90 GFR Calculation 97 BUN/Creatinine Ratio 13.00 Glucose 132 H POC Glucose Calculated Osmolality 284.1 Calcium 8.6 Magnesium 2.1 Total Creatine Kinase CK-MB (CK-2) Troponin I 0.024 B-Natriuretic Peptide 05/17/17 05/17/17 05/17/17 02:19 02:19 05:26 WBC 7.8 RBC 4.24 Hgb 13.8 L Hct 40.5 L MCV 95.5 MCH 33 MCHC 34.1 RDW 15.1 Plt Count 156 MPV 13.0 H Neut % (Auto) 55.6 Lymph % (Auto) 27.7 Williamson % (Auto) 13.6 H Eos % (Auto) 2.3 Baso % (Auto) 0.3 Neut # (Auto) 4.4 Lymph # (Auto) 2.2 Williamson # (Auto) 1.1 H Eos # (Auto) 0.2 Baso # (Auto) 0.0 Immature Gran % 0.5 Nucleated RBC % 0.0 Immature Gran # 0.04 Nucleated RBCs # 0.00 Immature Plt Fraction 8.3 H INR PT Patient/Control Mix Sodium Potassium Chloride Carbon Dioxide Anion Gap BUN Creatinine GFR Calculation BUN/Creatinine Ratio Glucose POC Glucose Calculated Osmolality Calcium Magnesium Total Creatine Kinase 100 CK-MB (CK-2) 1.8 Troponin I 0.030 B-Natriuretic Peptide 95 05/17/17 05/17/17 07:20 07:23 WBC RBC Hgb Hct MCV MCH MCHC RDW Plt Count MPV Neut % (Auto) Lymph % (Auto) Williamson % (Auto) Eos % (Auto) Baso % (Auto) Neut # (Auto) Lymph # (Auto) Williamson # (Auto) Eos # (Auto) Baso # (Auto) Immature Gran % Nucleated RBC % Immature Gran # Nucleated RBCs # Immature Plt Fraction INR PT Patient/Control Mix Sodium Potassium Chloride Carbon Dioxide Anion Gap BUN Creatinine GFR Calculation BUN/Creatinine Ratio Glucose POC Glucose 135 H Calculated Osmolality Calcium Magnesium Total Creatine Kinase CK-MB (CK-2) Troponin I 0.027 B-Natriuretic Peptide
[2017-05-17] MEDS ORDERED: NITROGLYCERIN SL 0.4 MG TABLET SL PRN (09:35)
[2017-05-17] MEDS ORDERED: POTASSIUM CHLORIDE RIDER 10 MEQ in PREMIX 1 EACH IV PRN (09:37)
[2017-05-17] MEDS ORDERED: MAGNESIUM SULF RIDER 2 GM in PREMIX 1 EACH IV PRN (09:37)
[2017-05-17] MEDS ORDERED: ONDANSETRON 4 MG TABLET PO PRN (10:00)
--- NOTE | 2017-05-17 10:10 | XRay Report ---
History: Chest pain Date: 05/17/2017 Study: Chest x-ray AP portable Comparison exam: March 28, 2017 The cardiomediastinal silhouette and pulmonary vasculature are unremarkable. The lungs and pleural spaces are generally clear. There is a calcified granuloma in the left mid to upper lung. There is mild to moderate thoracic spondylosis. Impression: No acute cardiopulmonary process compared to the previous study PROCEDURE INTERPRETED AT [facility] DEPARTMENT OF RADIOLOGY Final Report Signed by: Dr. Kiara Mandujano
--- NOTE | 2017-05-17 10:13 | EKG Report ---
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
[2017-05-17] MEDS: CLOPIDOGREL 75 MG TABLET PO SCH (10:18)
[2017-05-17] MEDS: ENOXAPARIN 100 MG/ML SYRINGE SUBCUT SCH ×2 (10:19→21:06)
[2017-05-17] MEDS: GABAPENTIN 100 MG CAPSULE PO SCH ×2 (14:55→20:52)
[2017-05-17] MEDS: ATENOLOL 50 MG TABLET PO SCH (20:52)
[2017-05-17] MEDS ORDERED: PANTOPRAZOLE 40 MG TABLET PO SCH (21:00)
[2017-05-17] MEDS ORDERED: ATORVASTATIN 20 MG TABLET PO SCH (21:00)
[2017-05-17] MEDS ORDERED: ASPIRIN EC 81 MG TABLET PO SCH ×2 (21:00)
[2017-05-17] MEDS ORDERED: LOSARTAN 50 MG TABLET PO SCH (21:00)
[2017-05-17] MEDS ORDERED: INSULIN ASPART PROTAMINE/ASPART 70/30 100 UNIT/ML SUBCUT SCH (21:00)
[2017-05-18] MEDS ORDERED: DEXTROSE 5% NACL 0.45% 1,000 ML IV SCH (04:00)
[2017-05-18] MEDS ORDERED: diphenhydrAMINE CAP 25 MG CAPSULE PO ONE (06:00)
[2017-05-18] MEDS ORDERED: DIAZEPAM 5 MG TABLET PO ONE (06:00)
[2017-05-18 06:18] LABS: Basophils % 0.3 % (0.0-0.8); Eosinophils # 0.1 10*3/uL (0.0-0.87); Eosinophils % 1.4 % (0.00-10.9); Hematocrit 42.9 VOL% (42.0-52.0); Hemoglobin 14.4 GM/DL (14.0-18.0); Immature Granulocytes % 0.6 %; Immature Granulocytes Absolute 0.06 #; Lymphocytes # 2.5 10*3/uL (1.4-4.0); Lymphocytes % 25.6 % (21.2-54.2); Mean Corpuscular HGB Conc 33.6 GM/DL (32-36); Mean Corpuscular Hemoglobin 32 PG (27-34); Mean Corpuscular Volume 94.9 FL (87-102); Mean Platelet Volume 12.5 FL (9.6-12.0); Monocytes # 0.9 10*3/uL (0.11-0.8); Monocytes % 9.5 % (1.7-12.7); Neutrophils # 6.1 10*3/uL (1.4-7.4); Neutrophils % 62.6 % (38.7-73.9); Platelet Count 169 T/CUMM (130-400); Red Blood Count 4.52 MC/CUMM (3.8-5.5); Red Cell Distribution Width 14.9 % (9.3-17.3); White Blood Count 9.8 T/CUMM (4-12)
[2017-05-18 06:29] LABS: PT Patient Result 10.7 SECS
[2017-05-18 06:51] LABS: Calcium 8.7 MG/DL (8.5-10.1); Magnesium 2.3 MG/DL (1.8-2.4); Osmolality,Calculated 281.3 MOS/KG (273-304); Potassium 4.3 MMOL/L (3.5-5.1)
[2017-05-18] MEDS: ENOXAPARIN 100 MG/ML SYRINGE SUBCUT SCH ×2 (07:35→09:38)
[2017-05-18] MEDS: CLOPIDOGREL 75 MG TABLET PO SCH ×2 (07:35→08:35)
[2017-05-18] MEDS: INSULIN REGULAR 100 UNIT/ML SUBCUT SCH ×3 (07:37→16:39)
[2017-05-18] MEDS ORDERED: HEPARIN/NACL 0.9% 2 UNITS/ML 0 ML IV ONE (07:53)
[2017-05-18] MEDS ORDERED: fentaNYL 100 MCG/2 ML VIAL ONE (07:54)
[2017-05-18] MEDS ORDERED: MIDAZOLAM 2 MG/2 ML VIAL ONE (07:54)
--- NOTE | 2017-05-18 07:54 | History and Physical Update ---
Sedation H&P Update - History and Physical H&P was reviewed, the patient examined and there: are no changes in the patients condition since last H&P was completed. - Sedation Plan for Sedation: moderate Patient Consent: Procedure disscussed with patient and patinet has consented., Risks and benefits were discussed with patient,including infection,, bleeding, injury to surrounding structures, seizure, temporary nerve, Patient understands and accepts potential risks/benefits and agrees to, proceed. ASA Class: III Airway Assessment: Class III: Soft palate, base of uvula visible
[2017-05-18] MEDS ORDERED: methylPREDNISolone SOD SUC 125 MG/2 ML VIAL ONE (07:55)
[2017-05-18] MEDS ORDERED: INSULIN ASPART PROTAMINE/ASPART 70/30 100 UNIT/ML SUBCUT SCH (08:00)
[2017-05-18] MEDS ORDERED: NITROGLYCERIN DRIP 50 MG/250 ML BOTTLE IV ONE (08:02)
[2017-05-18] MEDS ORDERED: VERAPAMIL 5 MG/2 ML VIAL ONE ×2 (08:02→08:07)
--- NOTE | 2017-05-18 08:36 | Cardiac Catheterization ---
Date of Procedure:: 05/18/17 Pre-op Diagnosis: Patient with history of intracoronary stents now with recurring chest pain for evaluation. His troponins are very minimally elevated to the point that I do not think it significant. His pain is different than what he had previously. He is unable to exercise related to hip pain for that reason we are bringing him for cardiac catheterization. Post-op diagnosis: same Procedure: Procedures performed: 1: Left heart catheterization 2: Coronary arteriography 3: Left ventriculography After obtaining informed consent the patient was brought to the cardiac catheterization lab where the right wrist was prepped and draped in the usual sterile fashion. Using intravenous sedation and local anesthesia a needle was inserted into the right radial artery and a guidewire was positioned without difficulty. A 5 [place] sheath was advanced over the guidewire and positioned in the right radial artery without difficulty. Patient was given verapamil and nitroglycerin intra-arterial as a vasodilator. At this point a Alexey catheter was advanced over a guidewire under fluoroscopic control to the ascending aorta where the left main coronary ostium was engaged and multiple angiograms were obtained in multiple angulations. Next this catheter was manipulated into the right coronary artery and multiple angiograms of the right coronary artery was undertaken in multiple views. After adequate angiograms the right coronary were obtained this catheter then with the assistance of a guidewire was advanced across the aortic valve into the left ventricle and a left ventriculogram was obtained in the [place] projection injecting 30 mL of contrast at 12 mL/s. After adequate ventriculography was obtained this catheter was pulled back from the ventricle to the aorta under hemodynamic monitoring and removed. Patient then underwent T R band application 2 mm above the radial skin entry site. 15 mL of air was in injected into the hemo band and the radial sheath was pulled. Air was removed from the TR band and 1 mL intervals until a arterial flash was noted. Additional 2 mL of air were added back to the TR band at this point. The patient tolerated procedure well. His right hand was warm with good capillary fill noted. Patient was transferred to the holding area having suffered no significant immediate complications. Hemodynamics: Please see accompanying data sheet Coronary angiography: Left coronary artery: Left main coronary artery is well-developed and free of significant obstructing lesions. The circumflex coronary artery is a large nondominant vessel that possesses no significant lesions throughout its course. The branches of the circumflex likewise are free of significant obstructing lesions. The left anterior descending coronary artery is large vessel that extends to the apex of the ventricle. There is an intracoronary stent in the proximal LAD. The mid/distal LAD has a tubular area of 50% stenosis which is unchanged from prior catheterization done in November 2016. Right coronary artery: Right coronary is a large dominant vessel it possesses intracoronary stent in its posterolateral branches. There is one at the origin of the posterior lateral and one in the mid segment of the posterior lateral. Both of these stents appear to be widely patent. There is a PDA stenosis which is unchanged from a prior cath done in November. It is probably 70% flow- limiting. The remainder of the right coronary appears to be free of significant obstructing lesions. Left ventriculography: After injection of contrast in the left ventricle is noted be of normal size with normal contractility. Mitral and aortic structures appear normal by ventriculography. Conclusions: 1: Widely patent intracoronary stents the posterior lateral in origin as well as a mid posterior lateral. 2: Significant disease of the mid PDA as well as of the distal LAD for continued medical therapy. 3: Normal left ventricular systolic function and ejection fraction in the 55% range 4: Normal end-diastolic pressures at rest. Discussion and recommendations: Patient presents atypical chest discomfort and essentially normal troponins. He has had no change in his coronary anatomy since we completed stenting of an occluded posterolateral in November of this year. 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 Dillard. Surgeon / Physician: Seth Starkey Estimated blood loss: minimal Specimens: none sent Condition: stable - Medications / Follow-up
[2017-05-18] MEDS ORDERED: ISOSORBIDE MONONITRATE 30 MG TABLET PO SCH (09:00)
[2017-05-18] MEDS: GABAPENTIN 100 MG CAPSULE PO SCH ×2 (09:20→15:06)
[2017-05-18] MEDS: ATENOLOL 50 MG TABLET PO SCH ×2 (09:37→09:39)
--- NOTE | 2017-05-18 14:59 | Discharge Summary ---
Hospital Course - Hospital Course Hospital Course: OVERNIGHT ASSOCIATE: DR. STARKEY Patient admitted for complaints concerning of angina. Has a history of known coronary artery disease. For this reason, patient underwent cardiac catheterization performed by Dr. Starkey May 18, 2017 with the following noted : Conclusions: 1: Widely patent intracoronary stents the posterior lateral in origin as well as a mid posterior lateral. 2: Significant disease of the mid PDA as well as of the distal LAD for continued medical therapy. 3: Normal left ventricular systolic function and ejection fraction in the 55% range 4: Normal end-diastolic pressures at rest. Discussion and recommendations: Patient presents atypical chest discomfort and essentially normal troponins. He has had no change in his coronary anatomy since we completed stenting of an occluded posterolateral in November of this year. Tolerated the procedure well without complication and was returned to our telemetry unit in stable condition. Patient had no additional complaints of angina. Labs are stable. Right radial access site free of hematoma or bruit, capillary refill brisk distally. Having felt him at maximal medical therapy, and anxious for release home, patient is being discharged home in stable condition. Patient would like to transition care to Dr. Starkey as his primary banquet set up person and we will arrange for a 2 week follow-up. Patient will resume all preadmission medications including: Aspirin 81 mg orally each evening Atenolol 25 mg orally twice daily Lipitor 20 mill grams orally each evening Clopidogrel 75 mg orally daily Isosorbide mononitrate 30 mg orally daily Cozaar 50 mg orally each evening Nitroglycerin sublingual as needed He will resume his other preadmission noncardiac meds including PPI. - Time spent with patient Time with patient DS: Greater than 30 minutes Diagnosis - Discharge Diagnosis (1) Chest pain Status: Resolved (2) Coronary artery disease Status: Chronic (3) History of coronary artery stent placement Status: Chronic (4) Dyslipidemia Status: Chronic (5) History of thrombocytopenia Status: Chronic (6) Hypertension Status: Chronic Specialty Discharge - Follow Up or Referrals Follow up with: Seth Starkey MD [Physician] - 2 Weeks Discharge Plan - Discharge Data Disposition: Disch To Home/Self Care Condition at Discharge: Stable Discharge Diet: heart healthy Activity: other (Post cath expectations) Hygiene: other (Post cath expectations) Weight Bearing at Discharge: other (Post cath expectations) Driving: other (The expectation) Contact your physician if you experience:: fever over 101, Difficulty voiding, Redness or swelling, Nausea/Vomiting, Shortness of breath, Bleeding, pain uncontrolled by pain medications - Discharge Medications Continue Atorvastatin [Lipitor] 20 mg PO BEDTIME Aspirin [Ecotrin] 81 mg PO BEDTIME Insulin Aspart Prot/Asp 70/30 [NovoLOG Mix 70/30] 50 unit SUBCUT DAILY W/ BREAKFAST Insulin Aspart Prot/Asp 70/30 [NovoLOG Mix 70/30] 36 unit SUBCUT BEDTIME Losartan [Cozaar] 50 mg PO BEDTIME Nitroglycerin [Nitroglycerin SL Tab] 0.4 mg SL Q5M PRN #100 tablet PRN Reason: Chest Pain Pantoprazole Tab [Protonix Tab] 40 mg PO BEDTIME HYDROcodone/ACETAMIN 7.5-325 [[place] 7.5-325] 1 tablet PO Q6H PRN PRN Reason: Pain Moderate To Severe (4-10) Clopidogrel [Plavix] 75 mg PO DAILY #30 tablet Ondansetron [Ondansetron Odt] 8 mg PO Q4H PRN #10 tab.rapdis PRN Reason: Nausea Atenolol [Tenormin] 25 mg PO BID #60 tablet Isosorbide Mononitrate [Imdur] 30 mg PO DAILY #30 tablet Gabapentin Cap/Tab [Neurontin Cap/Tab] 100 mg PO TID #90 capsule - Follow Up or Referral - Forms/Instructions Instructions: Coronary Artery Disease (GEN), Left Heart Catheterization (DC), Heart Healthy Diet (GEN) Exam - Constitutional Vitals: Period Temp Pulse Resp BP Sys/Ferreira Pulse Ox Last 24 Hr 97.7 F-98.4 F 48-57 12-20 128-182/44-91 93-97 Exam: General: [Appears well with no apparent distress.] [Pleasant and cooperative. ] [Appears comfortable.] HEENT: [PERRL, normocephalic, atraumatic. Mucous membranes moist. No jaundice noted. Conjunctiva moist and clear, sclerae anicteric] Neck: No JVD/HJR, no thyromegaly or lymphadenopathy noted. No carotid bruit appreciated Cardiac: [Regular rate and rhythm.] [No murmur rub or gallop.] Lungs: [Clear to auscultation without accessory muscle use to assist the respiratory pattern.] Not requiring oxygen Abdomen: Soft, bowel sounds normoactive. Nontender and nondistended. No abdominal bruit or thrill noted. No masses noted. Musculoskeletal: No fluid collection. Decreased range of motion is noted. Extremities: No clubbing, cyanosis noted. [ No edema noted.] Right radial approach free of hematoma. Upper extremity pulses 2+. Lower extremity pulses 2 +. Capillary refill less than 3 seconds. Skin: No unusual lesions or rashes. No skin breakdown appreciated. Neuro: Awake, alert and oriented 3. Moves all extremities well without hemiparesis or paralysis. No essential tremor is appreciated. Discharge Results Procedures and tests throughout hospitalization: Pending Orders 05/18/17 07:32 CL heart Routine 05/19/17 04:00 BMP w/ Mg [Basic Metabolic Panel w/Mg] IN AM Comp Blood Count Auto Diff IN AM Labs on day of discharge: Labs from last 24 hours 05/18/17 05/18/17 05/18/17 11:30 07:11 05:54 WBC RBC Hgb Hct MCV MCH MCHC RDW Plt Count MPV Neut % (Auto) Lymph % (Auto) [place] % (Auto) Eos % (Auto) Baso % (Auto) Neut # (Auto) Lymph # (Auto) [place] # (Auto) Eos # (Auto) Baso # (Auto) Immature Gran % Nucleated RBC % Immature Gran # Nucleated RBCs # Immature Plt Fraction INR PT Patient/Control Mix Sodium 141 Potassium 4.3 Chloride 107 Carbon Dioxide 26 Anion Gap 12.3 BUN 15 Creatinine 0.90 GFR Calculation 97 BUN/Creatinine Ratio 16.00 Glucose 94 POC Glucose 253 H 94 Calculated Osmolality 281.3 Calcium 8.7 Magnesium 2.3 05/18/17 05/18/17 05/17/17 05:54 05:54 20:02 WBC 9.8 RBC 4.52 Hgb 14.4 Hct 42.9 MCV 94.9 MCH 32 MCHC 33.6 RDW 14.9 Plt Count 169 MPV 12.5 H Neut % (Auto) 62.6 Lymph % (Auto) 25.6 [place] % (Auto) 9.5 Eos % (Auto) 1.4 Baso % (Auto) 0.3 Neut # (Auto) 6.1 Lymph # (Auto) 2.5 [place] # (Auto) 0.9 H Eos # (Auto) 0.1 Baso # (Auto) 0.0 Immature Gran % 0.6 Nucleated RBC % 0.0 Immature Gran # 0.06 Nucleated RBCs # 0.00 Immature Plt Fraction 0.0 INR 1.0 PT Patient/Control Mix 10.7 Sodium Potassium Chloride Carbon Dioxide Anion Gap BUN Creatinine GFR Calculation BUN/Creatinine Ratio Glucose POC Glucose 212 H Calculated Osmolality Calcium Magnesium 05/17/17 15:15 WBC RBC Hgb Hct MCV MCH MCHC RDW Plt Count MPV Neut % (Auto) Lymph % (Auto) [place] % (Auto) Eos % (Auto) Baso % (Auto) Neut # (Auto) Lymph # (Auto) [place] # (Auto) Eos # (Auto) Baso # (Auto) Immature Gran % Nucleated RBC % Immature Gran # Nucleated RBCs # Immature Plt Fraction INR PT Patient/Control Mix Sodium Potassium Chloride Carbon Dioxide Anion Gap BUN Creatinine GFR Calculation BUN/Creatinine Ratio Glucose POC Glucose 202 H Calculated Osmolality Calcium Magnesium - Imaging and Cardiology Cardiology Procedure: report reviewed by me DS: Provider Date of admission: 05/17/17 04:04 Primary care physician: Will Rich, Attending physician on admission: Damian Up MD Consults: 05/18/17 08:36 Consult to Cardiac Rehabilitation [CONS] Routine Reason for Cardiac Rehabilitation: Risk Factor Modification Discharging clinician: Bri Blackwell NP Expected date of discharge: 05/18/17
[2017-05-18 15:57] VITALS: BP 131/72
== END 2017-05-18 17:35 | disposition home or self-care (01) ==
LOC: N.ED 01:43 → INTOOBSV 04:49 → N.EDINP 04:49 → N.TELES 04:53
PROVIDERS: ADMIT Emergency Medicine; ATTEND Internal Medicine Interventional Cardiology
PROC: CLCCHCL (ICD-10-PCS; 2017-05-18 08:15)

== ENCOUNTER 2017-08-17 08:49 | Inpatient (IN) ==
[2017-08-17] MEDS ORDERED: MORPHINE 2 MG/1 ML SYRINGE IV STA (09:46)
[2017-08-17] MEDS ORDERED: ONDANSETRON 4 MG/2 ML VIAL IV STA (09:46)
[2017-08-17] MEDS ORDERED: NITROGLYCERIN 2% OINT 1 INCH/GM PACK TOP STA (09:46)
[2017-08-17] MEDS ORDERED: ASPIRIN 325 MG TABLET PO STA (09:46)
[2017-08-17 09:52] LABS: Basophils % 0.5 % (0.0-0.8); Eosinophils # 0.2 10*3/uL (0.0-0.87); Hematocrit 43.5 VOL% (42.0-52.0); Hemoglobin 14.8 GM/DL (14.0-18.0); Immature Granulocytes % 0.5 %; Immature Granulocytes Absolute 0.04 #; Lymphocytes # 2.2 10*3/uL (1.4-4.0); Lymphocytes % 27.7 % (21.2-54.2); Mean Corpuscular Hemoglobin 32 PG (27-34); Mean Corpuscular Volume 94.6 FL (87-102); Mean Platelet Volume 12.5 FL (9.6-12.0); Monocytes # 0.9 10*3/uL (0.11-0.8); Monocytes % 11.3 % (1.7-12.7); Neutrophils # 4.5 10*3/uL (1.4-7.4); Platelet Count 166 T/CUMM (130-400); Red Cell Distribution Width 14.3 % (9.3-17.3); White Blood Count 7.8 T/CUMM (4-12)
[2017-08-17] MEDS ORDERED: ASPIRIN 325 MG TABLET ONE (10:00)
[2017-08-17] MEDS ORDERED: NITROGLYCERIN 2% OINT 1 INCH/GM PACK TOP ONE (10:00)
[2017-08-17] MEDS ORDERED: MORPHINE 2 MG/1 ML SYRINGE ONE (10:00)
[2017-08-17] MEDS ORDERED: ONDANSETRON 4 MG/2 ML VIAL ONE (10:00)
[2017-08-17 10:03] LABS: PT Patient Result 10.6 SECS
[2017-08-17 10:24] LABS: Albumin 3.4 G/DL (3.4-5.0); Bilirubin,Total 1.1 MG/DL (0.2-1.0); Calcium 8.7 MG/DL (8.5-10.1); Magnesium 2.1 MG/DL (1.8-2.4); Osmolality,Calculated 279.5 MOS/KG (273-304); Potassium 4.1 MMOL/L (3.5-5.1); Total Protein 6.5 G/DL (6.4-8.3)
[2017-08-17] MEDS ORDERED: MAGNESIUM SULF RIDER 4 GM in PREMIX 1 EACH IV PRN (16:11)
[2017-08-17] MEDS ORDERED: POTASSIUM CHLORIDE 20 MEQ TABLET PO PRN (16:11)
[2017-08-17] MEDS ORDERED: MORPHINE 2 MG/1 ML SYRINGE IV PRN (16:11)
[2017-08-17] MEDS ORDERED: DEXTROSE 50% 25 GM/50 ML VIAL IV PRN (16:11)
[2017-08-17] MEDS ORDERED: ONDANSETRON 4 MG/2 ML VIAL IV PRN (16:11)
[2017-08-17] MEDS ORDERED: GLUCAGON 1 MG VIAL IM PRN (16:11)
[2017-08-17] MEDS ORDERED: MAGNESIUM SULF RIDER 2 GM in PREMIX 1 EACH IV PRN (16:11)
[2017-08-17] MEDS: INSULIN REGULAR 100 UNIT/ML SUBCUT SCH ×2 (16:51→21:54)
[2017-08-17] MEDS: ENOXAPARIN 100 MG/ML SYRINGE SUBCUT SCH (21:53)
[2017-08-18] MEDS ORDERED: NITROGLYCERIN 2% OINT 1 INCH/GM PACK TOP ONE (09:12)
[2017-08-18] MEDS: ENOXAPARIN 100 MG/ML SYRINGE SUBCUT SCH ×2 (09:12→21:51)
[2017-08-18 09:54] LABS: Albumin 3.2 G/DL (3.4-5.0); Calcium 8.8 MG/DL (8.5-10.1); Magnesium 2.1 MG/DL (1.8-2.4); Osmolality,Calculated 284.5 MOS/KG (273-304); Potassium 4.8 MMOL/L (3.5-5.1); Risk Ratio 2.79; Total Protein 6.2 G/DL (6.4-8.3); VLDL CHOLESTEROL 24.6 MG/DL
[2017-08-18] MEDS: INSULIN REGULAR 100 UNIT/ML SUBCUT SCH ×4 (10:11→21:52)
[2017-08-18] MEDS: PANTOPRAZOLE 40 MG TABLET PO SCH ×2 (10:12→11:44)
[2017-08-18] MEDS ORDERED: NITROGLYCERIN SL 0.4 MG TABLET SL PRN (11:14)
[2017-08-18 11:24] LABS: Basophils % 0.4 % (0.0-0.8); Eosinophils # 0.2 10*3/uL (0.0-0.87); Eosinophils % 1.9 % (0.00-10.9); Hematocrit 43.7 VOL% (42.0-52.0); Hemoglobin 14.4 GM/DL (14.0-18.0); Immature Granulocytes % 0.5 %; Immature Granulocytes Absolute 0.04 #; Lymphocytes # 2.4 10*3/uL (1.4-4.0); Lymphocytes % 29.7 % (21.2-54.2); Mean Corpuscular Hemoglobin 32 PG (27-34); Mean Corpuscular Volume 96.5 FL (87-102); Mean Platelet Volume 13.2 FL (9.6-12.0); Monocytes % 12.8 % (1.7-12.7); Neutrophils # 4.4 10*3/uL (1.4-7.4); Neutrophils % 54.7 % (38.7-73.9); Platelet Count 154 T/CUMM (130-400); Red Blood Count 4.53 MC/CUMM (3.8-5.5); Red Cell Distribution Width 14.6 % (9.3-17.3); White Blood Count 8.1 T/CUMM (4-12)
[2017-08-18] MEDS ORDERED: GABAPENTIN 100 MG CAPSULE PO SCH (11:30)
[2017-08-18] MEDS ORDERED: ISOSORBIDE MONONITRATE 30 MG TABLET PO SCH (11:30)
[2017-08-18] MEDS: CLOPIDOGREL 75 MG TABLET PO SCH (11:44)
[2017-08-18] MEDS: ATENOLOL 25 MG TABLET PO SCH ×2 (11:44→21:51)
[2017-08-18] MEDS: INSULIN ASPART PROTAMINE/ASPART 70/30 100 UNIT/ML SUBCUT SCH (12:47)
[2017-08-18] MEDS ORDERED: ZALEPLON 5 MG CAPSULE PO PRN (15:27)
[2017-08-18] MEDS ORDERED: MAGNESIUM HYDROXIDE SUSP 30 ML UDCUP PO PRN (15:27)
[2017-08-18] MEDS ORDERED: ACETAMINOPHEN 325 MG TABLET PO PRN (15:27)
[2017-08-18] MEDS ORDERED: ISOSORBIDE MONONITRATE 60 MG TABLET PO SCH (17:56)
[2017-08-18] MEDS ORDERED: GABAPENTIN 300 MG CAPSULE PO SCH (21:00)
[2017-08-18] MEDS ORDERED: LOSARTAN 50 MG TABLET PO SCH (21:00)
[2017-08-18] MEDS ORDERED: INSULIN ASPART PROTAMINE/ASPART 70/30 100 UNIT/ML SUBCUT SCH ×2 (21:00)
[2017-08-18] MEDS ORDERED: ATORVASTATIN 20 MG TABLET PO SCH (21:00)
[2017-08-18] MEDS ORDERED: ASPIRIN EC 81 MG TABLET PO SCH (21:00)
[2017-08-18] MEDS: ACETAMINOPHEN 500 MG TABLET PO SCH (21:50)
[2017-08-18] MEDS: LOSARTAN 50 MG TABLET PO SCH (21:50)
[2017-08-18] MEDS: PREGABALIN 50 MG CAPSULE PO SCH (21:51)
[2017-08-19] MEDS ORDERED: GLIMEPIRIDE 2 MG TABLET PO SCH (08:00)
[2017-08-19] MEDS: INSULIN REGULAR 100 UNIT/ML SUBCUT SCH ×2 (08:38→14:20)
[2017-08-19] MEDS: PREGABALIN 50 MG CAPSULE PO SCH (10:08)
[2017-08-19] MEDS: ACETAMINOPHEN 500 MG TABLET PO SCH (10:08)
[2017-08-19] MEDS: LOSARTAN 50 MG TABLET PO SCH (10:08)
[2017-08-19] MEDS: ATENOLOL 25 MG TABLET PO SCH (10:08)
[2017-08-19] MEDS: PANTOPRAZOLE 40 MG TABLET PO SCH (10:09)
[2017-08-19] MEDS: CLOPIDOGREL 75 MG TABLET PO SCH (10:09)
[2017-08-19] MEDS: INSULIN ASPART PROTAMINE/ASPART 70/30 100 UNIT/ML SUBCUT SCH (10:09)
[2017-08-19] MEDS: ENOXAPARIN 100 MG/ML SYRINGE SUBCUT SCH (10:10)
[2017-08-19 11:50] VITALS: BP 128/80
== END 2017-08-19 14:18 | disposition home or self-care (01) | DRG 313 ==
LOC: N.ED 08:49 → N.EDINP 11:49 → N.TELES 16:05
PROVIDERS: ADMIT Internal Medicine Cardiovascular Disease; ATTEND Internal Medicine Cardiovascular Disease

== ENCOUNTER 2018-07-26 16:31 | Observation (INO) ==
[2018-07-26] MEDS ORDERED: KETOROLAC 30 MG/1 ML VIAL IV STA (16:58)
[2018-07-26] MEDS ORDERED: methylPREDNISolone SOD SUC 125 MG/2 ML VIAL IV STA (16:58)
[2018-07-26] MEDS ORDERED: ORPHENADRINE 60 MG/2 ML VIAL IV STA (16:58)
[2018-07-26] MEDS ORDERED: KETOROLAC 30 MG/1 ML VIAL ONE (17:26)
[2018-07-26] MEDS ORDERED: ORPHENADRINE 60 MG/2 ML VIAL ONE (17:27)
[2018-07-26] MEDS ORDERED: methylPREDNISolone SOD SUC 125 MG/2 ML VIAL ONE (17:27)
[2018-07-26 17:37] LABS: Basophils % 0.3 % (0.0-0.8); Eosinophils % 0.4 % (0.00-10.9); Hematocrit 40.9 VOL% (42.0-52.0); Hemoglobin 13.2 GM/DL (14.0-18.0); Immature Granulocytes % 0.9 %; Immature Granulocytes Absolute 0.08 #; Lymphocytes # 1.4 10*3/uL (1.4-4.0); Lymphocytes % 15.8 % (21.2-54.2); Mean Corpuscular HGB Conc 32.3 GM/DL (32-36); Mean Corpuscular Hemoglobin 32 PG (27-34); Mean Corpuscular Volume 98.1 FL (87-102); Mean Platelet Volume 10.6 FL (9.6-12.0); Monocytes # 1.1 10*3/uL (0.11-0.8); Monocytes % 12.6 % (1.7-12.7); Neutrophils # 6.3 10*3/uL (1.4-7.4); Platelet Count 239 T/CUMM (130-400); Red Blood Count 4.17 MC/CUMM (3.8-5.5); Red Cell Distribution Width 15.1 % (9.3-17.3)
[2018-07-26 17:56] LABS: INR 0.9; PT Patient Result 9.9 SECS
[2018-07-26 17:59] LABS: Alanine Aminotransferase 26 U/L (16-61); Albumin 2.6 G/DL (3.4-5.0); Alkaline Phosphatase 114 U/L (45-117); Aspartate Amino Transferase 13 U/L (0-37); Blood Urea Nitrogen 19 MG/DL (7-18); Calcium 8.7 MG/DL (8.5-10.1); Glucose 174 MG/DL (74-106); Osmolality,Calculated 278.8 MOS/KG (273-304); Potassium 4.2 MMOL/L (3.5-5.1); Sodium 137 MMOL/L (136-145); Total Protein 6.8 G/DL (6.4-8.3); Troponin I < 0.015 NG/ML (0.00-0.045)
[2018-07-26 18:07] LABS: Apearance,Urine CLEAR (Clear); Bacteria,Urine Occasional /HPF (Few); Bilirubin,Urine Negative (Negative); Blood, Urine Negative (Negative); Glucose,Urine (UA) >=500 mg/dL (Negative); Ketones,Urine 5 mg/dL (Negative); Mucus,Urine Few /LPF (Occasional); Nitrite,Urine Negative (Negative); Protein,Urine Negative; RBC,Urine 1 /HPF (0-4); Squamous Epithelial Cell,Urine Occasional /HPF (0-10); Urine Color Yellow (Yellow); Urine Specific Gravity 1.025 (1.001-1.035); WBC,Urine 11 /HPF (0-6)
[2018-07-26 18:21] LABS: Barbiturates Screen,Urine Negative (Negative); Benzodiazepines Screen,Urine Negative (Negative); Cannabinoid Screen,Urine Negative (Negative); Opiate Screen,Urine Positive (Negative); Phencyclidine Screen,Urine Negative (Negative)
[2018-07-26] MEDS ORDERED: PROMETHAZINE 25 MG/1 ML VIAL IM PRN (19:03)
[2018-07-26] MEDS ORDERED: PROMETHAZINE 25 MG TABLET PO PRN (19:03)
[2018-07-26] MEDS ORDERED: ACETAMINOPHEN 325 MG TABLET PO PRN (19:03)
[2018-07-26] MEDS ORDERED: NITROGLYCERIN SL 0.4 MG TABLET SL PRN (19:06)
[2018-07-26] MEDS ORDERED: GLUCAGON 1 MG VIAL IM PRN (19:17)
[2018-07-26] MEDS ORDERED: DEXTROSE 50% 25 GM/50 ML VIAL IV PRN (19:17)
[2018-07-26 20:04] LABS: Sedimentation Rate-Westergren 54 MM/HR (0-20)
[2018-07-26] MEDS: SODIUM CHLORIDE 0.9% 1,000 ML IV SCH (23:51)
[2018-07-26] MEDS: ATORVASTATIN 20 MG TABLET PO SCH (23:52)
[2018-07-26] MEDS: GABAPENTIN 300 MG CAPSULE PO SCH (23:52)
[2018-07-26] MEDS: cefTRIAXone 1,000 MG in SYRINGE 1 EACH IV SCH (23:52)
[2018-07-26] MEDS: ASPIRIN EC 81 MG TABLET PO SCH (23:52)
[2018-07-27] MEDS: INSULIN LISPRO 100 UNIT/ML SUBCUT SCH ×5 (01:32→21:57)
[2018-07-27] MEDS: ATENOLOL 25 MG TABLET PO SCH ×3 (01:52→21:51)
[2018-07-27] MEDS: ACETAMINOPHEN 500 MG TABLET PO SCH ×3 (01:52→21:51)
[2018-07-27 06:25] LABS: Basophils % 0.1 % (0.0-0.8); Hematocrit 38.2 VOL% (42.0-52.0); Hemoglobin 12.3 GM/DL (14.0-18.0); Immature Granulocytes % 1.3 %; Immature Granulocytes Absolute 0.12 #; Lymphocytes # 1.1 10*3/uL (1.4-4.0); Lymphocytes % 12.2 % (21.2-54.2); Mean Corpuscular HGB Conc 32.2 GM/DL (32-36); Mean Corpuscular Hemoglobin 31 PG (27-34); Mean Corpuscular Volume 96.5 FL (87-102); Mean Platelet Volume 10.6 FL (9.6-12.0); Monocytes # 0.5 10*3/uL (0.11-0.8); Monocytes % 5.1 % (1.7-12.7); Neutrophils # 7.6 10*3/uL (1.4-7.4); Neutrophils % 81.3 % (38.7-73.9); Platelet Count 250 T/CUMM (130-400); Red Blood Count 3.96 MC/CUMM (3.8-5.5); Red Cell Distribution Width 14.9 % (9.3-17.3); White Blood Count 9.3 T/CUMM (4-12)
[2018-07-27 06:44] LABS: Osmolality,Calculated 285.8 MOS/KG (273-304); Potassium 4.2 MMOL/L (3.5-5.1)
[2018-07-27] MEDS: LOSARTAN 50 MG TABLET PO SCH (10:39)
[2018-07-27] MEDS: PANTOPRAZOLE 40 MG TABLET PO SCH (10:39)
[2018-07-27] MEDS: FUROSEMIDE 20 MG TABLET PO SCH (10:39)
[2018-07-27] MEDS: CLOPIDOGREL 75 MG TABLET PO SCH (10:40)
[2018-07-27] MEDS: ISOSORBIDE MONONITRATE 30 MG TABLET PO SCH (10:40)
[2018-07-27] MEDS: INSULIN ASPART PROTAMINE/ASPART 70/30 100 UNIT/ML SUBCUT SCH ×2 (10:41→21:52)
[2018-07-27] MEDS: SODIUM CHLORIDE 0.9% 1,000 ML IV SCH (20:53)
[2018-07-27] MEDS: ASPIRIN EC 81 MG TABLET PO SCH (21:51)
[2018-07-27] MEDS: ATORVASTATIN 20 MG TABLET PO SCH (21:51)
[2018-07-27] MEDS: GABAPENTIN 300 MG CAPSULE PO SCH (21:52)
[2018-07-27] MEDS: cefTRIAXone 1,000 MG in SYRINGE 1 EACH IV SCH (22:38)
[2018-07-28] MEDS: INSULIN LISPRO 100 UNIT/ML SUBCUT SCH ×4 (08:52→21:13)
[2018-07-28] MEDS: INSULIN ASPART PROTAMINE/ASPART 70/30 100 UNIT/ML SUBCUT SCH ×2 (08:55→21:14)
[2018-07-28] MEDS: ISOSORBIDE MONONITRATE 30 MG TABLET PO SCH (09:37)
[2018-07-28] MEDS: ATENOLOL 25 MG TABLET PO SCH ×2 (09:37→21:13)
[2018-07-28] MEDS: FUROSEMIDE 20 MG TABLET PO SCH (09:37)
[2018-07-28] MEDS: PANTOPRAZOLE 40 MG TABLET PO SCH (09:38)
[2018-07-28] MEDS: LOSARTAN 50 MG TABLET PO SCH (09:38)
[2018-07-28] MEDS: CLOPIDOGREL 75 MG TABLET PO SCH (09:38)
[2018-07-28] MEDS: ACETAMINOPHEN 500 MG TABLET PO SCH ×2 (09:38→21:13)
[2018-07-28] MEDS: SODIUM CHLORIDE 0.9% 1,000 ML IV SCH (14:24)
[2018-07-28] MEDS: ATORVASTATIN 20 MG TABLET PO SCH (21:13)
[2018-07-28] MEDS: ASPIRIN EC 81 MG TABLET PO SCH (21:13)
[2018-07-28] MEDS: GABAPENTIN 300 MG CAPSULE PO SCH (21:13)
[2018-07-29 05:23] LABS: Calcium 8.4 MG/DL (8.5-10.1)
[2018-07-29 05:24] LABS: Osmolality,Calculated 284.1 MOS/KG (273-304); Potassium 4.1 MMOL/L (3.5-5.1)
[2018-07-29] MEDS: SODIUM CHLORIDE 0.9% 1,000 ML IV SCH (07:22)
[2018-07-29] MEDS: INSULIN ASPART PROTAMINE/ASPART 70/30 100 UNIT/ML SUBCUT SCH (08:49)
[2018-07-29] MEDS: CLOPIDOGREL 75 MG TABLET PO SCH (08:49)
[2018-07-29] MEDS: ACETAMINOPHEN 500 MG TABLET PO SCH (08:49)
[2018-07-29] MEDS: ISOSORBIDE MONONITRATE 30 MG TABLET PO SCH (08:50)
[2018-07-29] MEDS: LOSARTAN 50 MG TABLET PO SCH (08:50)
[2018-07-29] MEDS: PANTOPRAZOLE 40 MG TABLET PO SCH (08:50)
[2018-07-29] MEDS: FUROSEMIDE 20 MG TABLET PO SCH (08:50)
[2018-07-29] MEDS: ATENOLOL 25 MG TABLET PO SCH (08:50)
[2018-07-29] MEDS: INSULIN LISPRO 100 UNIT/ML SUBCUT SCH ×2 (09:02→13:39)
[2018-07-29 12:19] VITALS: BP 124/58
== END 2018-07-29 15:00 | disposition home health service (06) ==
LOC: EDBD → EDUNIT# → N.ED 16:31 → N.EDINP 16:31 → N.3E 22:28
PROVIDERS: ADMIT Internal Medicine; ATTEND Internal Medicine

== ENCOUNTER 2018-12-20 15:49 | Inpatient (IN) ==
[2018-12-20] MEDS ORDERED: KETOROLAC 30 MG/1 ML VIAL IV STA (16:21)
[2018-12-20] MEDS ORDERED: ORPHENADRINE 60 MG/2 ML VIAL IV STA (16:21)
[2018-12-20 16:47] LABS: Basophils % 0.3 % (0.0-0.8); Eosinophils % 0.1 % (0.00-10.9); Hematocrit 40.2 VOL% (42.0-52.0); Hemoglobin 12.7 GM/DL (14.0-18.0); Immature Granulocytes % 0.9 %; Immature Granulocytes Absolute 0.06 #; Lymphocytes # 1.4 10*3/uL (1.4-4.0); Lymphocytes % 21.1 % (21.2-54.2); Mean Corpuscular HGB Conc 31.6 GM/DL (32-36); Mean Corpuscular Hemoglobin 31 PG (27-34); Mean Corpuscular Volume 99.3 FL (87-102); Monocytes # 0.4 10*3/uL (0.11-0.8); Monocytes % 5.2 % (1.7-12.7); Neutrophils # 4.8 10*3/uL (1.4-7.4); Neutrophils % 72.4 % (38.7-73.9); Platelet Count 206 T/CUMM (130-400); Red Blood Count 4.05 MC/CUMM (3.8-5.5); Red Cell Distribution Width 15.1 % (9.3-17.3); White Blood Count 6.7 T/CUMM (4-12)
[2018-12-20 17:05] LABS: Alanine Aminotransferase 21 U/L (16-61); Albumin 2.7 G/DL (3.4-5.0); Alkaline Phosphatase 103 U/L (45-117); Amylase 20 U/L (25-115); Aspartate Amino Transferase 10 U/L (0-37); Blood Urea Nitrogen 13 MG/DL (7-18); Calcium 8.4 MG/DL (8.5-10.1); Glucose 200 MG/DL (74-106); Lipase < 50.0 U/L (73-393); Osmolality,Calculated 280.7 MOS/KG (273-304); Potassium 4.2 MMOL/L (3.5-5.1); Sodium 138 MMOL/L (136-145); Total Protein 6.4 G/DL (6.4-8.3); Troponin I 0.022 NG/ML (0.00-0.045)
[2018-12-20 18:46] LABS: Apearance,Urine CLEAR (Clear); Bacteria,Urine Occasional /HPF (Few); Bilirubin,Urine Negative (Negative); Blood, Urine Negative (Negative); Glucose,Urine (UA) >=500 mg/dL (Negative); Ketones,Urine Negative (Negative); Mucus,Urine Moderate /LPF (Occasional); Nitrite,Urine Negative (Negative); Protein,Urine Negative; RBC,Urine 2 /HPF (0-4); Urine Color Yellow (Yellow); WBC,Urine 15 /HPF (0-6)
[2018-12-20] MEDS ORDERED: DEXTROSE 50% 25 GM/50 ML VIAL IV PRN ×2 (18:53)
[2018-12-20] MEDS ORDERED: GLUCAGON 1 MG VIAL IM PRN (18:53)
[2018-12-20] MEDS ORDERED: ONDANSETRON 4 MG/2 ML VIAL IV PRN (18:53)
[2018-12-20] MEDS: INSULIN LISPRO 100 UNIT/ML SUBCUT SCH (20:43)
[2018-12-21 04:41] LABS: Basophils % 0.3 % (0.0-0.8); Eosinophils # 0.1 10*3/uL (0.0-0.87); Eosinophils % 1.1 % (0.00-10.9); Hemoglobin 12.5 GM/DL (14.0-18.0); Immature Granulocytes % 0.6 %; Immature Granulocytes Absolute 0.04 #; Lymphocytes # 1.8 10*3/uL (1.4-4.0); Lymphocytes % 28.1 % (21.2-54.2); Mean Corpuscular HGB Conc 32.1 GM/DL (32-36); Mean Corpuscular Hemoglobin 32 PG (27-34); Mean Corpuscular Volume 98.2 FL (87-102); Mean Platelet Volume 11.4 FL (9.6-12.0); Monocytes # 0.6 10*3/uL (0.11-0.8); Monocytes % 10.1 % (1.7-12.7); NRBC # 0.02 10*3/uL; Neutrophils # 3.7 10*3/uL (1.4-7.4); Neutrophils % 59.8 % (38.7-73.9); Platelet Count 205 T/CUMM (130-400); Red Blood Count 3.97 MC/CUMM (3.8-5.5); White Blood Count 6.2 T/CUMM (4-12)
[2018-12-21 05:25] LABS: Calcium 8.5 MG/DL (8.5-10.1); Osmolality,Calculated 285.4 MOS/KG (273-304); Potassium 3.9 MMOL/L (3.5-5.1); Risk Ratio 2.43; Thyroid Stimulating Hormone 1.19 uIU/ml (0.358-3.74); VLDL CHOLESTEROL 18.2 MG/DL
[2018-12-21] MEDS: ORPHENADRINE 60 MG/2 ML VIAL IV PRN (06:08)
[2018-12-21] MEDS: INSULIN LISPRO 100 UNIT/ML SUBCUT SCH ×4 (09:25→21:19)
[2018-12-21] MEDS: PANTOPRAZOLE 40 MG TABLET PO SCH (09:27)
[2018-12-21] MEDS ORDERED: predniSONE 10 MG TABLET PO PRN (20:00)
[2018-12-21] MEDS ORDERED: NITROGLYCERIN SL 0.4 MG TABLET SL PRN (20:00)
[2018-12-21] MEDS: ATENOLOL 25 MG TABLET PO SCH (20:13)
[2018-12-21] MEDS ORDERED: INSULIN ASPART PROTAMINE/ASPART 70/30 100 UNIT/ML SUBCUT SCH (20:30)
[2018-12-21] MEDS: ASPIRIN EC 81 MG TABLET PO SCH (21:20)
[2018-12-21] MEDS: CLOPIDOGREL 75 MG TABLET PO SCH (21:20)
[2018-12-22] MEDS: ORPHENADRINE 60 MG/2 ML VIAL IV PRN ×2 (04:15→22:50)
[2018-12-22 05:06] LABS: Basophils % 0.4 % (0.0-0.8); Eosinophils # 0.1 10*3/uL (0.0-0.87); Eosinophils % 0.9 % (0.00-10.9); Hematocrit 40.1 VOL% (42.0-52.0); Hemoglobin 12.6 GM/DL (14.0-18.0); Immature Granulocytes % 1.1 %; Immature Granulocytes Absolute 0.08 #; Lymphocytes # 1.4 10*3/uL (1.4-4.0); Lymphocytes % 19.3 % (21.2-54.2); Mean Corpuscular HGB Conc 31.4 GM/DL (32-36); Mean Corpuscular Hemoglobin 31 PG (27-34); Mean Corpuscular Volume 98.3 FL (87-102); Mean Platelet Volume 11.4 FL (9.6-12.0); Monocytes # 0.7 10*3/uL (0.11-0.8); Monocytes % 9.7 % (1.7-12.7); Neutrophils # 5.1 10*3/uL (1.4-7.4); Neutrophils % 68.6 % (38.7-73.9); Platelet Count 205 T/CUMM (130-400); Red Blood Count 4.08 MC/CUMM (3.8-5.5); Red Cell Distribution Width 15.1 % (9.3-17.3); White Blood Count 7.5 T/CUMM (4-12)
[2018-12-22 05:35] LABS: Calcium 8.4 MG/DL (8.5-10.1); Osmolality,Calculated 279.8 MOS/KG (273-304); Potassium 4.4 MMOL/L (3.5-5.1)
[2018-12-22] MEDS: INSULIN LISPRO 100 UNIT/ML SUBCUT SCH ×4 (08:43→21:57)
[2018-12-22] MEDS: ATENOLOL 25 MG TABLET PO SCH ×2 (08:44→21:54)
[2018-12-22] MEDS: ISOSORBIDE MONONITRATE 30 MG TABLET PO SCH (08:44)
[2018-12-22] MEDS: INSULIN ASPART PROTAMINE/ASPART 70/30 100 UNIT/ML SUBCUT SCH ×2 (08:44→21:56)
[2018-12-22] MEDS: LOSARTAN 50 MG TABLET PO SCH (08:44)
[2018-12-22] MEDS: PANTOPRAZOLE 40 MG TABLET PO SCH (08:44)
[2018-12-22] MEDS: PIPERACILLIN/TAZOBACTAM 3,375 MG in SODIUM CHLORIDE 0.9% 100 ML IV SCH ×2 (10:07→16:45)
[2018-12-22] MEDS: ASPIRIN EC 81 MG TABLET PO SCH (21:56)
[2018-12-22] MEDS: CLOPIDOGREL 75 MG TABLET PO SCH (21:56)
[2018-12-22] MEDS: LACTOBACILLUS RHAMNOSUS GG CAPSULE PO SCH (21:56)
[2018-12-23] MEDS: PIPERACILLIN/TAZOBACTAM 3,375 MG in SODIUM CHLORIDE 0.9% 100 ML IV SCH ×2 (00:57→09:44)
[2018-12-23 05:34] LABS: Basophils % 0.6 % (0.0-0.8); Eosinophils # 0.1 10*3/uL (0.0-0.87); Eosinophils % 0.8 % (0.00-10.9); Hematocrit 39.4 VOL% (42.0-52.0); Hemoglobin 12.5 GM/DL (14.0-18.0); Immature Granulocytes % 0.7 %; Immature Granulocytes Absolute 0.05 #; Lymphocytes # 1.3 10*3/uL (1.4-4.0); Lymphocytes % 17.7 % (21.2-54.2); Mean Corpuscular HGB Conc 31.7 GM/DL (32-36); Mean Corpuscular Hemoglobin 31 PG (27-34); Mean Corpuscular Volume 98.5 FL (87-102); Mean Platelet Volume 11.1 FL (9.6-12.0); Monocytes # 0.7 10*3/uL (0.11-0.8); Monocytes % 9.5 % (1.7-12.7); Neutrophils # 5.1 10*3/uL (1.4-7.4); Neutrophils % 70.7 % (38.7-73.9); Platelet Count 213 T/CUMM (130-400); Red Cell Distribution Width 15.2 % (9.3-17.3); White Blood Count 7.2 T/CUMM (4-12)
[2018-12-23 05:46] LABS: Calcium 8.3 MG/DL (8.5-10.1); Osmolality,Calculated 279.4 MOS/KG (273-304); Potassium 3.6 MMOL/L (3.5-5.1)
[2018-12-23 07:27] LABS: Total Protein (Chem) 5.8 G/DL (6.4-8.3)
[2018-12-23] MEDS: INSULIN LISPRO 100 UNIT/ML SUBCUT SCH ×4 (09:39→21:49)
[2018-12-23] MEDS: INSULIN ASPART PROTAMINE/ASPART 70/30 100 UNIT/ML SUBCUT SCH ×2 (09:40→21:48)
[2018-12-23] MEDS: LACTOBACILLUS RHAMNOSUS GG CAPSULE PO SCH ×2 (09:41→21:46)
[2018-12-23] MEDS: PANTOPRAZOLE 40 MG TABLET PO SCH (09:42)
[2018-12-23] MEDS: LOSARTAN 50 MG TABLET PO SCH (09:42)
[2018-12-23] MEDS: ISOSORBIDE MONONITRATE 30 MG TABLET PO SCH (09:42)
[2018-12-23] MEDS: ATENOLOL 25 MG TABLET PO SCH ×2 (09:42→21:47)
[2018-12-23 09:55] LABS: Anti SS-A Antibodies < 16 EU/ML
[2018-12-23] MEDS: NITROFURANTOIN MACRO/MONO 100 MG CAPSULE PO SCH ×2 (10:56→21:47)
[2018-12-23 11:09] LABS: Albumin (SPE) 2.8 G/DL (3.2-5.3); Albumin (SPE) Rel % 48.9 %; Alpha 1 (SPE) 0.2 G/DL (0.1-0.4); Alpha 1 (SPE) Rel % 4.1 %; Alpha 2 (SPE) 0.9 G/DL (0.4-1.0); Alpha 2 (SPE) Rel % 15.8 %; Beta (SPE) 0.6 G/DL (0.5-1.1); Beta (SPE) Rel % 11.1 %; Gamma (SPE) 1.2 G/DL (0.7-1.7); Gamma (SPE) Rel % 20.1 %
[2018-12-23 13:26] LABS: Immuno Free Light Chain Kappa 3.08 MG/DL (0.33-1.94); Immuno Free Light Chain Lambda 2.73 MG/DL (0.57-2.63); Immuno Free Light Chain Ratio 1.13 MG/DL (0.26-1.65)
[2018-12-23] MEDS: CLOPIDOGREL 75 MG TABLET PO SCH (21:46)
[2018-12-23] MEDS: ASPIRIN EC 81 MG TABLET PO SCH (21:47)
[2018-12-24] MEDS: INSULIN LISPRO 100 UNIT/ML SUBCUT SCH ×2 (07:50→11:44)
[2018-12-24] MEDS: LACTOBACILLUS RHAMNOSUS GG CAPSULE PO SCH (08:08)
[2018-12-24] MEDS: ATENOLOL 25 MG TABLET PO SCH (08:08)
[2018-12-24] MEDS: LOSARTAN 50 MG TABLET PO SCH (08:08)
[2018-12-24] MEDS: NITROFURANTOIN MACRO/MONO 100 MG CAPSULE PO SCH (08:08)
[2018-12-24] MEDS: INSULIN ASPART PROTAMINE/ASPART 70/30 100 UNIT/ML SUBCUT SCH (08:09)
[2018-12-24] MEDS: ISOSORBIDE MONONITRATE 30 MG TABLET PO SCH (08:09)
[2018-12-24] MEDS: PANTOPRAZOLE 40 MG TABLET PO SCH (08:14)
[2018-12-24 10:40] LABS: Aldolase 4.5 U/L (<7.7)
[2018-12-24 12:13] VITALS: BP 126/66
== END 2018-12-24 14:25 | disposition home health service (06) | DRG 552 ==
LOC: EDBD → EDUNIT# → N.ED 15:49 → N.EDINP 18:33 → N.3E 19:31
PROVIDERS: ADMIT Internal Medicine; ATTEND Internal Medicine

== ENCOUNTER 2019-03-22 13:15 | Observation (INO) ==
[2019-03-22 13:43] LABS: Basophils % 0.5 % (0.0-0.8); Eosinophils # 0.1 10*3/uL (0.0-0.87); Eosinophils % 0.6 % (0.00-10.9); Hematocrit 42.6 VOL% (42.0-52.0); Hemoglobin 13.4 GM/DL (14.0-18.0); Immature Granulocytes % 0.5 %; Immature Granulocytes Absolute 0.04 #; Lymphocytes # 2.1 10*3/uL (1.4-4.0); Lymphocytes % 25.3 % (21.2-54.2); Mean Corpuscular HGB Conc 31.5 GM/DL (32-36); Mean Corpuscular Volume 101.9 FL (87-102); Mean Platelet Volume 11.8 FL (9.6-12.0); Monocytes % 8.4 % (1.7-12.7); Neutrophils % 64.7 % (38.7-73.9); Platelet Count 219 T/CUMM (130-400); Red Blood Count 4.18 MC/CUMM (3.8-5.5); Red Cell Distribution Width 17.1 % (9.3-17.3); White Blood Count 8.3 T/CUMM (4-12)
[2019-03-22 13:57] LABS: INR 0.9; PT Patient Result 9.8 SECS
[2019-03-22 14:01] LABS: Alanine Aminotransferase 24 U/L (16-61); Albumin 3.2 G/DL (3.4-5.0); Alkaline Phosphatase 130 U/L (45-117); Aspartate Amino Transferase 12 U/L (0-37); Blood Urea Nitrogen 17 MG/DL (7-18); Calcium 9.2 MG/DL (8.5-10.1); Glucose 205 MG/DL (74-106); Osmolality,Calculated 288.3 MOS/KG (273-304); Total Protein 7.1 G/DL (6.4-8.3); Troponin I < 0.015 NG/ML (0.00-0.045)
[2019-03-22] MEDS ORDERED: ENOXAPARIN 100 MG/ML SYRINGE SUBCUT STA (14:10)
[2019-03-22] MEDS ORDERED: ASPIRIN 325 MG TABLET PO STA (14:10)
[2019-03-22] MEDS ORDERED: NITROGLYCERIN SL 0.4 MG TABLET SL PRN (14:10)
[2019-03-22] MEDS ORDERED: MORPHINE 4 MG/1 ML VIAL IV PRN (15:19)
[2019-03-22] MEDS ORDERED: DOCUSATE SODIUM 100 MG CAPSULE PO PRN (15:19)
[2019-03-22] MEDS ORDERED: ONDANSETRON 4 MG/2 ML VIAL IV PRN (15:19)
[2019-03-22] MEDS ORDERED: LACTULOSE 20 GM/30 ML UDCUP PO PRN (15:19)
[2019-03-22] MEDS ORDERED: ACETAMINOPHEN 325 MG TABLET PO PRN (15:19)
[2019-03-22] MEDS ORDERED: DEXTROSE 50% 25 GM/50 ML VIAL IV PRN (15:43)
[2019-03-22] MEDS ORDERED: GLUCAGON 1 MG VIAL IM PRN (15:43)
[2019-03-22] MEDS ORDERED: GABAPENTIN 300 MG CAPSULE PO PRN (15:58)
[2019-03-22] MEDS ORDERED: predniSONE 5 MG TABLET PO PRN (15:58)
[2019-03-22] MEDS: INSULIN REGULAR 100 UNIT/ML SUBCUT SCH ×2 (17:42→21:25)
[2019-03-22] MEDS ORDERED: PANTOPRAZOLE 40 MG TABLET PO SCH (21:00)
[2019-03-22] MEDS ORDERED: LOSARTAN 50 MG TABLET PO SCH (21:00)
[2019-03-22] MEDS ORDERED: ATORVASTATIN 20 MG TABLET PO SCH (21:00)
[2019-03-22] MEDS ORDERED: DOXAZOSIN 1 MG TABLET PO SCH (21:00)
[2019-03-22] MEDS ORDERED: ISOSORBIDE MONONITRATE 30 MG TABLET PO SCH (21:00)
[2019-03-22] MEDS: CARVEDILOL 12.5 MG TABLET PO SCH (21:24)
[2019-03-22] MEDS: INSULIN NPH/REGULAR 70/30 100 UNIT/ML SUBCUT SCH (21:25)
[2019-03-22 22:31] LABS: Troponin I 0.016 NG/ML (0.00-0.045)
[2019-03-23 05:18] LABS: Basophils % 0.3 % (0.0-0.8); Eosinophils # 0.1 10*3/uL (0.0-0.87); Eosinophils % 0.9 % (0.00-10.9); Hematocrit 36.1 VOL% (42.0-52.0); Hemoglobin 11.3 GM/DL (14.0-18.0); Immature Granulocytes % 1.3 %; Immature Granulocytes Absolute 0.08 #; Lymphocytes # 1.3 10*3/uL (1.4-4.0); Lymphocytes % 20.6 % (21.2-54.2); Mean Corpuscular HGB Conc 31.3 GM/DL (32-36); Mean Corpuscular Volume 102.6 FL (87-102); Mean Platelet Volume 12.2 FL (9.6-12.0); Monocytes % 11.3 % (1.7-12.7); NRBC # 0.02 10*3/uL; Neutrophils % 65.6 % (38.7-73.9); Platelet Count 195 T/CUMM (130-400); Red Blood Count 3.52 MC/CUMM (3.8-5.5); Red Cell Distribution Width 17.1 % (9.3-17.3); White Blood Count 6.4 T/CUMM (4-12)
[2019-03-23 05:43] LABS: Calcium 8.5 MG/DL (8.5-10.1); Osmolality,Calculated 288.3 MOS/KG (273-304)
[2019-03-23 05:46] LABS: Risk Ratio 2.83; VLDL CHOLESTEROL 32.8 MG/DL
[2019-03-23] MEDS ORDERED: GLUCAGON 1 MG VIAL IM PRN (07:46)
[2019-03-23] MEDS ORDERED: DEXTROSE 50% 25 GM/50 ML VIAL IV PRN (07:46)
[2019-03-23 08:50] VITALS: BP 132/63
[2019-03-23] MEDS: INSULIN REGULAR 100 UNIT/ML SUBCUT SCH ×2 (09:02→12:03)
[2019-03-23] MEDS: INSULIN NPH/REGULAR 70/30 100 UNIT/ML SUBCUT SCH (09:02)
[2019-03-23] MEDS: CARVEDILOL 12.5 MG TABLET PO SCH (09:02)
[2019-03-23] MEDS ORDERED: ENOXAPARIN 100 MG/ML SYRINGE SUBCUT SCH (11:00)
[2019-03-23] MEDS ORDERED: DOXAZOSIN 1 MG TABLET PO SCH (11:28)
[2019-03-23] MEDS ORDERED: CLOPIDOGREL 75 MG TABLET PO SCH (21:00)
== END 2019-03-23 12:45 | disposition home or self-care (01) ==
LOC: N.ED 13:15 → N.EDINP 13:15 → N.TELES 16:58
PROVIDERS: ADMIT Hospitalist; ATTEND Hospitalist

== ENCOUNTER 2020-05-24 16:41 | Inpatient (IN) ==
[2020-05-24] MEDS ORDERED: NITROGLYCERIN 2% OINT 1 INCH/GM PACK TOP STA (17:05)
[2020-05-24 17:12] LABS: Basophils % 0.6 % (0.0-0.8); Eosinophils # 0.1 10*3/uL (0.0-0.87); Eosinophils % 1.6 % (0.00-10.9); Hematocrit 38.1 VOL% (42.0-52.0); Hemoglobin 12.2 GM/DL (14.0-18.0); Immature Granulocytes % 0.4 %; Immature Granulocytes Absolute 0.03 #; Lymphocytes # 1.6 10*3/uL (1.4-4.0); Lymphocytes % 23.2 % (21.2-54.2); Mean Corpuscular Volume 98.7 FL (87-102); Mean Platelet Volume 12.1 FL (9.6-12.0); Monocytes % 9.3 % (1.7-12.7); NRBC # 0.02 10*3/uL; Neutrophils % 64.9 % (38.7-73.9); Platelet Count 185 T/CUMM (130-400); Red Blood Count 3.86 MC/CUMM (3.8-5.5); Red Cell Distribution Width 16.5 % (9.3-17.3); White Blood Count 6.8 T/CUMM (4-12)
[2020-05-24 17:24] LABS: PT Patient Result 10.6 SECS (9.8-11.9)
[2020-05-24 17:35] LABS: Albumin 2.9 G/DL (3.4-5.0); Bilirubin,Total 0.7 MG/DL (0.2-1.0); Calcium 9.1 MG/DL (8.5-10.1); Osmolality,Calculated 282.4 MOS/KG (273-304); Total Protein 6.2 G/DL (6.4-8.3)
[2020-05-24 18:00] LABS: Ferritin 69.5 ng/ml (26-388)
[2020-05-24] MEDS ORDERED: GLUCAGON 1 MG VIAL IM PRN ×2 (18:30)
[2020-05-24] MEDS ORDERED: DEXTROSE 50% 25 GM/50 ML VIAL IV PRN ×2 (18:30)
[2020-05-24] MEDS ORDERED: hydrALAZINE 20 MG/1 ML VIAL IV PRN (19:11)
[2020-05-24] MEDS: ENOXAPARIN 40 MG/0.4 ML SYRINGE SUBCUT SCH (21:50)
[2020-05-24] MEDS: INSULIN LISPRO 100 UNIT/ML SUBCUT SCH (21:51)
[2020-05-25 06:56] LABS: Basophils # 0.1 10*3/uL (0.0-0.2); Basophils % 1.1 % (0.0-0.8); Eosinophils # 0.2 10*3/uL (0.0-0.87); Eosinophils % 3.1 % (0.00-10.9); Hematocrit 37.6 VOL% (42.0-52.0); Immature Granulocytes % 0.7 %; Immature Granulocytes Absolute 0.04 #; Lymphocytes # 1.4 10*3/uL (1.4-4.0); Mean Corpuscular HGB Conc 31.9 GM/DL (32-36); Mean Corpuscular Volume 99.5 FL (87-102); Mean Platelet Volume 12.4 FL (9.6-12.0); Monocytes % 14.9 % (1.7-12.7); NRBC # 0.02 10*3/uL; Neutrophils % 55.2 % (38.7-73.9); Platelet Count 179 T/CUMM (130-400); Red Blood Count 3.78 MC/CUMM (3.8-5.5); Red Cell Distribution Width 16.6 % (9.3-17.3); White Blood Count 5.5 T/CUMM (4-12)
[2020-05-25 07:23] LABS: Calcium 8.6 MG/DL (8.5-10.1); Osmolality,Calculated 283.1 MOS/KG (273-304)
[2020-05-25] MEDS ORDERED: POTASSIUM CHLORIDE 20 MEQ TABLET PO ONE (07:58)
[2020-05-25] MEDS: INSULIN LISPRO 100 UNIT/ML SUBCUT SCH ×4 (08:20→21:02)
[2020-05-25] MEDS ORDERED: NITROGLYCERIN SL 0.4 MG TABLET SL PRN (13:13)
[2020-05-25] MEDS: LISINOPRIL/HCTZ 20-25 MG TABLET PO SCH (13:15)
[2020-05-25] MEDS: CLOPIDOGREL 75 MG TABLET PO SCH (13:15)
[2020-05-25] MEDS: ISOSORBIDE MONONITRATE 30 MG TABLET PO SCH (13:15)
[2020-05-25] MEDS: atenoloL 25 MG TABLET PO SCH ×2 (13:15→21:02)
[2020-05-25] MEDS ORDERED: SODIUM CHLORIDE 0.65% NASAL SPRAY 45 ML BOTTLE BOTH NARES PRN (13:22)
[2020-05-25] MEDS: LORazepam 1 MG TABLET PO PRN (15:32)
[2020-05-25] MEDS ORDERED: diphenhydrAMINE CAP 25 MG CAPSULE PO PRN (16:14)
[2020-05-25] MEDS ORDERED: SIMETHICONE CHEW 80 MG TABLET PO PRN (16:15)
[2020-05-25] MEDS: ENOXAPARIN 40 MG/0.4 ML SYRINGE SUBCUT SCH (21:01)
[2020-05-25] MEDS: ASPIRIN EC 81 MG TABLET PO SCH (21:02)
[2020-05-25] MEDS: SIMVASTATIN 40 MG TABLET PO SCH (21:02)
[2020-05-26 05:26] LABS: Basophils # 0.1 10*3/uL (0.0-0.2); Basophils % 1.3 % (0.0-0.8); Eosinophils # 0.2 10*3/uL (0.0-0.87); Eosinophils % 4.4 % (0.00-10.9); Hematocrit 37.5 VOL% (42.0-52.0); Hemoglobin 11.9 GM/DL (14.0-18.0); Immature Granulocytes % 0.5 %; Immature Granulocytes Absolute 0.03 #; Lymphocytes # 1.6 10*3/uL (1.4-4.0); Lymphocytes % 28.9 % (21.2-54.2); Mean Corpuscular HGB Conc 31.7 GM/DL (32-36); Mean Corpuscular Volume 99.7 FL (87-102); Mean Platelet Volume 12.9 FL (9.6-12.0); Monocytes % 13.3 % (1.7-12.7); Neutrophils % 51.6 % (38.7-73.9); Platelet Count 162 T/CUMM (130-400); Red Blood Count 3.76 MC/CUMM (3.8-5.5); Red Cell Distribution Width 16.8 % (9.3-17.3); White Blood Count 5.5 T/CUMM (4-12)
[2020-05-26 05:46] LABS: Calcium 8.7 MG/DL (8.5-10.1); Osmolality,Calculated 279.5 MOS/KG (273-304)
[2020-05-26] MEDS: ISOSORBIDE MONONITRATE 30 MG TABLET PO SCH (09:24)
[2020-05-26] MEDS: CLOPIDOGREL 75 MG TABLET PO SCH (09:24)
[2020-05-26] MEDS: atenoloL 25 MG TABLET PO SCH ×2 (09:24→21:01)
[2020-05-26] MEDS: INSULIN LISPRO 100 UNIT/ML SUBCUT SCH ×4 (09:24→21:55)
[2020-05-26] MEDS: LISINOPRIL/HCTZ 20-25 MG TABLET PO SCH (09:24)
[2020-05-26] MEDS ORDERED: ALBUTEROL 0.63 MG/3 ML NEB RESP TX PRN (09:38)
[2020-05-26] MEDS: LOPERAMIDE 2 MG CAPSULE PO PRN ×2 (12:13→16:09)
[2020-05-26] MEDS: LORazepam 1 MG TABLET PO PRN (18:29)
[2020-05-26] MEDS: ASPIRIN EC 81 MG TABLET PO SCH (21:01)
[2020-05-26] MEDS: SIMVASTATIN 40 MG TABLET PO SCH (21:01)
[2020-05-26] MEDS: ENOXAPARIN 40 MG/0.4 ML SYRINGE SUBCUT SCH (21:01)
[2020-05-27 05:26] LABS: Basophils # 0.1 10*3/uL (0.0-0.2); Eosinophils # 0.3 10*3/uL (0.0-0.87); Eosinophils % 4.8 % (0.00-10.9); Hematocrit 37.4 VOL% (42.0-52.0); Hemoglobin 11.9 GM/DL (14.0-18.0); Immature Granulocytes % 0.6 %; Immature Granulocytes Absolute 0.03 #; Lymphocytes # 1.4 10*3/uL (1.4-4.0); Lymphocytes % 26.6 % (21.2-54.2); Mean Corpuscular HGB Conc 31.8 GM/DL (32-36); Mean Platelet Volume 12.1 FL (9.6-12.0); Monocytes % 14.3 % (1.7-12.7); Neutrophils % 52.7 % (38.7-73.9); Platelet Count 145 T/CUMM (130-400); Red Blood Count 3.74 MC/CUMM (3.8-5.5); Red Cell Distribution Width 16.5 % (9.3-17.3); White Blood Count 5.2 T/CUMM (4-12)
[2020-05-27 05:43] LABS: Calcium 8.6 MG/DL (8.5-10.1); Osmolality,Calculated 277.7 MOS/KG (273-304)
[2020-05-27] MEDS: predniSONE 20 MG TABLET PO SCH ×3 (09:21→20:12)
[2020-05-27] MEDS: atenoloL 25 MG TABLET PO SCH ×2 (09:22→20:12)
[2020-05-27] MEDS: INSULIN LISPRO 100 UNIT/ML SUBCUT SCH ×4 (09:22→20:12)
[2020-05-27] MEDS: CLOPIDOGREL 75 MG TABLET PO SCH (09:22)
[2020-05-27] MEDS: LISINOPRIL/HCTZ 20-25 MG TABLET PO SCH (09:22)
[2020-05-27] MEDS: ISOSORBIDE MONONITRATE 30 MG TABLET PO SCH (09:22)
[2020-05-27] MEDS: diphenhydrAMINE 50 MG/1 ML VIAL IV SCH ×2 (12:43→17:30)
[2020-05-27] MEDS: FAMOTIDINE 20 MG/2 ML VIAL IV SCH (12:43)
[2020-05-27] MEDS ORDERED: POTASSIUM CHLORIDE 20 MEQ TABLET PO ONE (14:02)
[2020-05-27] MEDS: ENOXAPARIN 40 MG/0.4 ML SYRINGE SUBCUT SCH (20:11)
[2020-05-27] MEDS: SIMVASTATIN 40 MG TABLET PO SCH (20:12)
[2020-05-27] MEDS: ASPIRIN EC 81 MG TABLET PO SCH (20:12)
[2020-05-28] MEDS: FAMOTIDINE 20 MG/2 ML VIAL IV SCH ×2 (00:20→13:32)
[2020-05-28] MEDS: diphenhydrAMINE 50 MG/1 ML VIAL IV SCH ×4 (00:22→17:13)
[2020-05-28] MEDS: predniSONE 20 MG TABLET PO SCH ×4 (03:45→20:38)
[2020-05-28 05:46] LABS: Basophils % 0.5 % (0.0-0.8); Hematocrit 38.7 VOL% (42.0-52.0); Hemoglobin 12.5 GM/DL (14.0-18.0); Immature Granulocytes % 0.9 %; Immature Granulocytes Absolute 0.06 #; Lymphocytes # 1.3 10*3/uL (1.4-4.0); Lymphocytes % 19.7 % (21.2-54.2); Mean Corpuscular HGB Conc 32.3 GM/DL (32-36); Mean Corpuscular Volume 96.8 FL (87-102); Mean Platelet Volume 13.3 FL (9.6-12.0); Monocytes % 2.8 % (1.7-12.7); Neutrophils % 76.1 % (38.7-73.9); Platelet Count 140 T/CUMM (130-400); Red Cell Distribution Width 15.9 % (9.3-17.3); White Blood Count 6.3 T/CUMM (4-12)
[2020-05-28] MEDS ORDERED: POTASSIUM CHLORIDE RIDER 10 MEQ in PREMIX 1 EACH IV PRN (06:00)
[2020-05-28] MEDS ORDERED: diphenhydrAMINE CAP 25 MG CAPSULE PO ONE (06:00)
[2020-05-28] MEDS ORDERED: DIAZEPAM 5 MG TABLET PO ONE (06:00)
[2020-05-28] MEDS ORDERED: MAGNESIUM SULF RIDER 2 GM in PREMIX 1 EACH IV PRN (06:00)
[2020-05-28 06:20] LABS: Calcium 9.2 MG/DL (8.5-10.1)
[2020-05-28 06:22] LABS: Hypochromasia 1+; Macrocytosis Slight; Ovalocytes Slight; Platelet Estimate Adequate; Target Cells Slight
[2020-05-28] MEDS ORDERED: LIDOCAINE 1%/EPI INJ 20 ML VIAL ONE (08:18)
[2020-05-28] MEDS ORDERED: HEPARIN/NACL 0.9% 2 UNITS/ML 1,000 ML IV ONE (08:18)
[2020-05-28] MEDS: CLOPIDOGREL 75 MG TABLET PO SCH (08:25)
[2020-05-28] MEDS ORDERED: MIDAZOLAM 2 MG/2 ML VIAL ONE ×2 (08:39→09:06)
[2020-05-28] MEDS ORDERED: fentaNYL 100 MCG/2 ML VIAL ONE (08:39)
[2020-05-28] MEDS ORDERED: ISOSORBIDE MONONITRATE 60 MG TABLET PO SCH (09:31)
[2020-05-28] MEDS: LISINOPRIL/HCTZ 20-25 MG TABLET PO SCH (10:32)
[2020-05-28] MEDS: SODIUM CHLORIDE 0.45% 1,000 ML IV SCH ×2 (10:33→17:12)
[2020-05-28] MEDS: atenoloL 25 MG TABLET PO SCH ×2 (10:33→20:38)
[2020-05-28] MEDS: INSULIN LISPRO 100 UNIT/ML SUBCUT SCH ×4 (10:33→20:37)
[2020-05-28] MEDS: ISOSORBIDE MONONITRATE 30 MG TABLET PO SCH (10:43)
[2020-05-28] MEDS: ASPIRIN EC 81 MG TABLET PO SCH (20:38)
[2020-05-28] MEDS: SIMVASTATIN 40 MG TABLET PO SCH (20:38)
[2020-05-28] MEDS: ENOXAPARIN 40 MG/0.4 ML SYRINGE SUBCUT SCH (20:38)
[2020-05-28] MEDS: LOPERAMIDE 2 MG CAPSULE PO PRN (20:45)
[2020-05-29] MEDS: diphenhydrAMINE 50 MG/1 ML VIAL IV SCH ×2 (01:10→06:02)
[2020-05-29] MEDS: SODIUM CHLORIDE 0.45% 1,000 ML IV SCH ×2 (01:10→10:47)
[2020-05-29] MEDS: FAMOTIDINE 20 MG/2 ML VIAL IV SCH (01:12)
[2020-05-29] MEDS: predniSONE 20 MG TABLET PO SCH ×2 (02:45→10:47)
[2020-05-29 04:39] LABS: Basophils % 0.1 % (0.0-0.8); Hematocrit 38.3 VOL% (42.0-52.0); Hemoglobin 12.3 GM/DL (14.0-18.0); Immature Granulocytes % 1.6 %; Immature Granulocytes Absolute 0.14 #; Lymphocytes # 1.3 10*3/uL (1.4-4.0); Lymphocytes % 15.4 % (21.2-54.2); Mean Corpuscular HGB Conc 32.1 GM/DL (32-36); Mean Corpuscular Volume 98.5 FL (87-102); Mean Platelet Volume 12.3 FL (9.6-12.0); Monocytes % 4.5 % (1.7-12.7); NRBC # 0.03 10*3/uL; Neutrophils % 78.4 % (38.7-73.9); Platelet Count 151 T/CUMM (130-400); Red Blood Count 3.89 MC/CUMM (3.8-5.5); Red Cell Distribution Width 16.2 % (9.3-17.3); White Blood Count 8.5 T/CUMM (4-12)
[2020-05-29 04:58] LABS: Calcium 8.8 MG/DL (8.5-10.1); Osmolality,Calculated 282.1 MOS/KG (273-304)
[2020-05-29 05:01] LABS: Calcium 8.9 MG/DL (8.5-10.1)
[2020-05-29] MEDS: CLOPIDOGREL 75 MG TABLET PO SCH (09:40)
[2020-05-29] MEDS: LISINOPRIL/HCTZ 20-25 MG TABLET PO SCH (09:40)
[2020-05-29] MEDS: atenoloL 25 MG TABLET PO SCH (09:41)
[2020-05-29] MEDS: INSULIN LISPRO 100 UNIT/ML SUBCUT SCH (09:41)
[2020-05-29 11:55] VITALS: BP 154/86
== END 2020-05-29 11:51 | disposition home health service (06) | DRG 287 ==
LOC: EDUNIT# → EDBD → N.EDINP 16:41 → N.ED 16:41 → N.TELES 20:31 → SUATTDRO 05-25 15:46
PROVIDERS: ADMIT Family Medicine; ATTEND Hospitalist
PROC: CLCCHCL (ICD-10-PCS; 2020-05-28 09:45)

== ENCOUNTER 2021-08-26 21:25 | Inpatient (IN) ==
[2021-08-26] MEDS ORDERED: SODIUM CHLORIDE 0.9% 500 ML IV STA (22:03)
[2021-08-26] MEDS ORDERED: ONDANSETRON 4 MG/2 ML VIAL IV STA (22:03)
[2021-08-26 23:09] LABS: Bilirubin,Urine Negative (Negative); Blood, Urine Negative (Negative); Glucose,Urine (UA) Negative (Negative); Ketones,Urine Negative (Negative); Mucus,Urine Occasional /LPF (Occasional); Nitrite,Urine Negative (Negative); Protein,Urine Negative; RBC,Urine <1 /HPF (0-4); Squamous Epithelial Cell,Urine Occasional /HPF (0-10); Urine Appearance CLEAR (Clear); Urine Color Straw (Yellow); Urine Specific Gravity 1.009 (1.001-1.035); Urine Urobilinogen < 2.0 EU/DL (0.2-1.0)
[2021-08-26 23:11] LABS: Basophils % 0.4 % (0.0-0.8); Eosinophils # 0.1 10*3/uL (0.0-0.87); Eosinophils % 1.2 % (0.00-10.9); Hematocrit 33.5 VOL% (42.0-52.0); Hemoglobin 10.7 GM/DL (14.0-18.0); Immature Granulocytes % 0.7 %; Immature Granulocytes Absolute 0.05 #; Lymphocytes # 1.1 10*3/uL (1.4-4.0); Mean Corpuscular HGB Conc 31.9 GM/DL (32-36); Mean Corpuscular Volume 98.8 FL (87-102); Mean Platelet Volume 12.2 FL (9.6-12.0); Monocytes % 9.8 % (1.7-12.7); NRBC # 0.02 10*3/uL; Neutrophils % 71.9 % (38.7-73.9); Platelet Count 154 T/CUMM (130-400); Red Blood Count 3.39 MC/CUMM (3.8-5.5); White Blood Count 6.9 T/CUMM (4-12)
[2021-08-26 23:24] LABS: INR 1.1; PT Patient Result 11.9 SECS (10.5-12.0)
[2021-08-26 23:30] LABS: Alanine Aminotransferase 28 U/L (16-61); Albumin 2.8 G/DL (3.4-5.0); Alkaline Phosphatase 75 U/L (45-117); Aspartate Amino Transferase 21 U/L (0-37); Blood Urea Nitrogen 15 MG/DL (7-18); Calcium 8.2 MG/DL (8.5-10.1); Carbon Dioxide 29 MMOL/L (21-32); Estimated Glom Filtration Rate 95 ML/MIN; Glucose 158 MG/DL (74-106); Osmolality,Calculated 284.3 MOS/KG (273-304); Sodium 141 MMOL/L (136-145); Total Protein 5.3 G/DL (6.4-8.2)
[2021-08-27] MEDS ORDERED: ACETAMINOPHEN 325 MG TABLET PO PRN (01:52)
[2021-08-27] MEDS ORDERED: DEXTROSE 50% 25 GM/50 ML VIAL IV PRN (01:52)
[2021-08-27] MEDS ORDERED: GLUCAGON 1 MG VIAL IM PRN (01:52)
[2021-08-27] MEDS ORDERED: traZODone 50 MG TABLET PO PRN (02:04)
[2021-08-27] MEDS ORDERED: DOCUSATE SODIUM 100 MG CAPSULE PO PRN (02:04)
[2021-08-27] MEDS ORDERED: SIMETHICONE CHEW 125 MG TABLET PO PRN (02:04)
[2021-08-27] MEDS ORDERED: ONDANSETRON 4 MG/2 ML VIAL IV PRN (02:04)
[2021-08-27] MEDS ORDERED: hydrALAZINE 20 MG/1 ML VIAL IV PRN (02:04)
[2021-08-27] MEDS ORDERED: KETOROLAC 30 MG/1 ML VIAL IV PRN (02:15)
[2021-08-27 04:04] LABS: Basophils % 0.4 % (0.0-0.8); Eosinophils # 0.1 10*3/uL (0.0-0.87); Eosinophils % 1.6 % (0.00-10.9); Hematocrit 31.7 VOL% (42.0-52.0); Immature Granulocytes % 0.8 %; Immature Granulocytes Absolute 0.06 #; Lymphocytes # 1.7 10*3/uL (1.4-4.0); Lymphocytes % 22.8 % (21.2-54.2); Mean Corpuscular HGB Conc 31.5 GM/DL (32-36); Mean Corpuscular Volume 101.3 FL (87-102); Mean Platelet Volume 11.9 FL (9.6-12.0); Monocytes % 11.3 % (1.7-12.7); Neutrophils % 63.1 % (38.7-73.9); Platelet Count 141 T/CUMM (130-400); Red Blood Count 3.13 MC/CUMM (3.8-5.5); Red Cell Distribution Width 16.4 % (9.3-17.3); White Blood Count 7.6 T/CUMM (4-12)
[2021-08-27 04:25] LABS: Blood Urea Nitrogen 14 MG/DL (7-18); Calcium 8.4 MG/DL (8.5-10.1); Carbon Dioxide 30 MMOL/L (21-32); Estimated Glom Filtration Rate 95 ML/MIN; Glucose 107 MG/DL (74-106); Potassium 4.3 MMOL/L (3.5-5.1); Sodium 143 MMOL/L (136-145)
[2021-08-27 04:26] LABS: Hypochromasia Slight; Microcytosis Slight; Platelet Estimate Adequate
[2021-08-27 04:28] LABS: % Iron Saturation 39.2 % (18-50); Ferritin 63.1 ng/mL (26-388)
[2021-08-27 04:30] LABS: Folate 15.43 NG/ML (5.38-24.0); Vitamin B12 1156 PG/ML (211-911)
[2021-08-27 05:09] LABS: Sedimentation Rate-Westergren 10 MM/HR (0-20)
[2021-08-27 08:12] LABS: Hemoglobin A1 (Alkaline) 97.3 % (96.5-98.5); Hemoglobin A2 (Alkaline) 2.7 % (1.5-3.5)
[2021-08-27] MEDS: PANTOPRAZOLE 40 MG TABLET PO SCH (11:07)
[2021-08-27] MEDS: AZITHROMYCIN INJ 500 MG in SODIUM CHLORIDE 0.9% 250 ML IV SCH (11:10)
[2021-08-27] MEDS: cefTRIAXone 1,000 MG in SODIUM CHLORIDE 0.9% 100 ML IV SCH (13:29)
[2021-08-27] MEDS: INSULIN LISPRO 100 UNIT/ML SUBCUT SCH ×3 (13:45→21:14)
[2021-08-27] MEDS ORDERED: traMADol 50 MG TABLET PO PRN (16:15)
[2021-08-27] MEDS: LIDOCAINE 5% PATCH TRANSDERM SCH (17:43)
[2021-08-27] MEDS: GABAPENTIN 300 MG CAPSULE PO SCH (21:14)
[2021-08-27] MEDS: ATORVASTATIN 40 MG TABLET PO SCH (21:14)
[2021-08-27] MEDS: ASPIRIN EC 81 MG TABLET PO SCH (21:14)
[2021-08-27] MEDS: atenoloL 25 MG TABLET PO SCH (21:14)
[2021-08-28 05:39] LABS: Basophils # 0.1 10*3/uL (0.0-0.2); Basophils % 1.2 % (0.0-0.8); Eosinophils # 0.6 10*3/uL (0.0-0.87); Eosinophils % 8.6 % (0.00-10.9); Hematocrit 34.3 VOL% (42.0-52.0); Hemoglobin 10.8 GM/DL (14.0-18.0); Immature Granulocytes % 0.4 %; Immature Granulocytes Absolute 0.03 #; Lymphocytes # 1.4 10*3/uL (1.4-4.0); Mean Corpuscular HGB Conc 31.5 GM/DL (32-36); Mean Corpuscular Volume 100.3 FL (87-102); Mean Platelet Volume 12.7 FL (9.6-12.0); Monocytes % 11.4 % (1.7-12.7); Neutrophils % 58.4 % (38.7-73.9); Platelet Count 131 T/CUMM (130-400); Red Blood Count 3.42 MC/CUMM (3.8-5.5); White Blood Count 6.9 T/CUMM (4-12)
[2021-08-28 06:04] LABS: Calcium 8.5 MG/DL (8.5-10.1); Osmolality,Calculated 278.5 MOS/KG (273-304); Potassium 3.9 MMOL/L (3.5-5.1)
[2021-08-28 06:07] LABS: Risk Ratio 2.76; VLDL Cholesterol 26.2 MG/DL
[2021-08-28] MEDS: INSULIN LISPRO 100 UNIT/ML SUBCUT SCH ×4 (10:19→22:37)
[2021-08-28] MEDS: CLOPIDOGREL 75 MG TABLET PO SCH (10:19)
[2021-08-28] MEDS: FLUTICASONE 50 MCG NASAL SPRAY 16 GM BOTTLE BOTH NARES SCH (10:19)
[2021-08-28] MEDS: LEFLUNOMIDE 10 MG TABLET PO SCH (10:20)
[2021-08-28] MEDS: ISOSORBIDE MONONITRATE 60 MG TABLET PO SCH (10:20)
[2021-08-28] MEDS: atenoloL 25 MG TABLET PO SCH ×2 (10:20→20:58)
[2021-08-28] MEDS: GABAPENTIN 300 MG CAPSULE PO SCH ×2 (10:20→20:58)
[2021-08-28] MEDS: ASCORBIC ACID 500 MG TABLET PO SCH (10:20)
[2021-08-28] MEDS: predniSONE 5 MG TABLET PO SCH (10:20)
[2021-08-28] MEDS: MAGNESIUM OXIDE 400 MG TABLET PO SCH (10:21)
[2021-08-28] MEDS: PANTOPRAZOLE 40 MG TABLET PO SCH (10:21)
[2021-08-28] MEDS: LIDOCAINE 5% PATCH TRANSDERM SCH (10:23)
[2021-08-28] MEDS: CHOLECALCIFEROL 400 UNIT TABLET PO SCH (13:57)
[2021-08-28] MEDS: cefTRIAXone 1,000 MG in SODIUM CHLORIDE 0.9% 100 ML IV SCH (14:02)
[2021-08-28] MEDS: AZITHROMYCIN INJ 500 MG in SODIUM CHLORIDE 0.9% 250 ML IV SCH (14:48)
[2021-08-28] MEDS: SODIUM CHLORIDE 0.9% 1,000 ML IV SCH (17:52)
[2021-08-28] MEDS: ATORVASTATIN 40 MG TABLET PO SCH (20:58)
[2021-08-28] MEDS: ASPIRIN EC 81 MG TABLET PO SCH (20:58)
[2021-08-29] MEDS: SODIUM CHLORIDE 0.9% 1,000 ML IV SCH (04:56)
[2021-08-29 06:35] LABS: Basophils # 0.1 10*3/uL (0.0-0.2); Basophils % 0.9 % (0.0-0.8); Eosinophils # 0.7 10*3/uL (0.0-0.87); Eosinophils % 8.8 % (0.00-10.9); Hematocrit 32.2 VOL% (42.0-52.0); Hemoglobin 10.1 GM/DL (14.0-18.0); Immature Granulocytes % 1.1 %; Immature Granulocytes Absolute 0.08 #; Lymphocytes # 1.6 10*3/uL (1.4-4.0); Lymphocytes % 22.3 % (21.2-54.2); Mean Corpuscular HGB Conc 31.4 GM/DL (32-36); Mean Corpuscular Volume 100.6 FL (87-102); Mean Platelet Volume 12.9 FL (9.6-12.0); Monocytes % 14.1 % (1.7-12.7); Neutrophils % 52.8 % (38.7-73.9); Platelet Count 134 T/CUMM (130-400); Red Cell Distribution Width 16.4 % (9.3-17.3); White Blood Count 7.4 T/CUMM (4-12)
[2021-08-29 07:08] LABS: Calcium 8.7 MG/DL (8.5-10.1); Osmolality,Calculated 281.3 MOS/KG (273-304)
[2021-08-29] MEDS: GABAPENTIN 300 MG CAPSULE PO SCH (09:54)
[2021-08-29] MEDS: INSULIN LISPRO 100 UNIT/ML SUBCUT SCH (09:54)
[2021-08-29] MEDS: LEFLUNOMIDE 10 MG TABLET PO SCH (09:55)
[2021-08-29] MEDS: ISOSORBIDE MONONITRATE 60 MG TABLET PO SCH (09:56)
[2021-08-29] MEDS: CHOLECALCIFEROL 400 UNIT TABLET PO SCH (09:57)
[2021-08-29] MEDS: MAGNESIUM OXIDE 400 MG TABLET PO SCH (09:57)
[2021-08-29] MEDS: PANTOPRAZOLE 40 MG TABLET PO SCH (09:57)
[2021-08-29] MEDS: predniSONE 5 MG TABLET PO SCH (09:58)
[2021-08-29] MEDS: ASCORBIC ACID 500 MG TABLET PO SCH (09:58)
[2021-08-29] MEDS: CLOPIDOGREL 75 MG TABLET PO SCH (09:58)
[2021-08-29] MEDS: LIDOCAINE 5% PATCH TRANSDERM SCH (09:59)
[2021-08-29] MEDS: FLUTICASONE 50 MCG NASAL SPRAY 16 GM BOTTLE BOTH NARES SCH (09:59)
[2021-08-29] MEDS: atenoloL 25 MG TABLET PO SCH (10:00)
[2021-08-29 12:19] VITALS: BP 120/50
== END 2021-08-29 15:08 | disposition swing bed (61) | DRG 552 ==
LOC: EDUNIT# → EDBD → N.ED 21:25 → N.EDINP 21:25 → N.TELEN 08-27 06:23 → SUATTDRO 08-27 13:05
PROVIDERS: ADMIT Internal Medicine; ATTEND Internal Medicine